=== PATIENT | female | born 1960 | race Caucasian/White ===

== ENCOUNTER 2017-05-19 09:00 | Emergency (ER) | payer SELFPAY ==
[2017-05-19] MEDS ORDERED: OXYCODONE-ACETAMINOPHEN 5-325 MG TABLET PO ONE (09:37)
--- NOTE | 2017-05-19 09:42 | ER Document Report ---
HPI - HPI Patient complains to provider of: right foot injury Pain Level: 5 Context: 56 yo female c/o right foot pain. foot fell asleep while she was sitting on toilet. when she stood up, she rolled her foot. Associated Symptoms: None Exacerbated by: Movement, Walking Relieved by: Denies Similar symptoms previously: No Recently seen / treated by doctor: No - ROS Systems Reviewed and Negative: Yes All other systems reviewed and negative - REPRODUCTIVE Reproductive: DENIES: : - DERM Skin Color: Ecchymosis Past Medical History - General Information source: Patient - Social History Smoking Status: Current Every Day Smoker Frequency of alcohol use: None Lives with: Family Family History: Reviewed & Not Pertinent Patient has suicidal ideation: No Patient has homicidal ideation: No - Past Medical History Cardiac Medical History: Reports: Hx Hypercholesterolemia, Hx Hypertension Pulmonary Medical History: Reports: Hx Asthma Renal/ Medical History: Denies: Hx Peritoneal Dialysis GI Medical History: Reports: Hx Gastroesophageal Reflux Disease Musculoskeltal Medical History: Reports Hx Musculoskeletal Deformity, Reports Hx Musculoskeletal Trauma Psychiatric Medical History: Reports: Hx Depression Traumatic Medical History: Reports: Hx Fractures - right foot and elbow Past Surgical History: Reports: Hx Hysterectomy, Hx Orthopedic Surgery - neck, right foot, elbow, back, Hx Tonsillectomy - Immunizations Immunizations up to date: Yes Hx Diphtheria, Pertussis, Tetanus Vaccination: Yes - 2014 Hx Pneumococcal Vaccination: 12/31/15 Vertical Provider Document - CONSTITUTIONAL Agree With Documented VS: Yes Exam Limitations: No Limitations General Appearance: WD/WN, No Apparent Distress - INFECTION CONTROL TRAVEL OUTSIDE OF THE [place] IN LAST 30 DAYS: No - HEENT HEENT: Atraumatic, PERRLA - NECK Neck: Normal Inspection, Supple - RESPIRATORY Respiratory: Breath Sounds Normal, No Respiratory Distress O2 Sat by Pulse Oximetry: 97 - MUSCULOSKELETAL/EXTREMETIES Musculoskeletal/Extremeties: Tender - right dorsilateral foot over proximal 4th and 5th metatarsals. mild soft tissue swelling. distal SMC intact Course - Re-evaluation Re-evalutation: 05/19/17 10:03 + fracture base of 5th metatarsal. results reviewed with patient. splint applied. pt to f/u with ortho for further evaluation and treatment. pt agreeable with plan and stable for discharge - Vital Signs Vital signs: Temp Pulse Resp BP Pulse Ox 97.9 F 66 18 115/75 97 05/19/17 09:07 05/19/17 09:07 05/19/17 09:07 05/19/17 09:07 05/19/17 09:07 Procedures - Immobilization right foot Pre-Proc Neuro Vasc Exam: Normal Immobilizer type: Posterior ankle Performed by: PCT Post-Proc Neuro Vasc Exam: Normal Alignment checked and good: Yes Discharge - Discharge Clinical Impression: Fracture of 5th metatarsal Qualifiers: Encounter type: initial encounter Fracture type: closed Fracture alignment: nondisplaced Condition: Stable Disposition: HOME, SELF-CARE Instructions: Foot Fracture ([facility]), Splint Pending Casting ([facility]), Use of Crutches ([facility]), Oral Narcotic Medication ([facility]) Additional Instructions: wear splint until seen by orthopedist use crutches, no weight bearing pain med as needed ice and elevate extremity follow up with orthopedist for further evaluation and treatment Prescriptions: Oxycodone HCl/Acetaminophen [Percocet 5-325 mg Tablet] 1 - 2 tab PO ASDIR PRN # 15 tablet PRN Reason: Referrals: DARLYN HERNANDEZ MD [ACTIVE STAFF] - Follow up as needed
--- NOTE | 2017-05-19 09:49 | RADIOLOGY REPORT (SQ) ---
EXAM DESCRIPTION: FOOT RIGHT COMPLETE COMPLETED DATE/TIME: 05/19/2017 9:35 am REASON FOR STUDY: foot injury COMPARISON: None. NUMBER OF VIEWS: Three views. TECHNIQUE: AP, lateral and oblique radiographic images acquired of the right foot. LIMITATIONS: None. FINDINGS: MINERALIZATION: Normal. BONES: Transverse lucency is identified at the level of the proximal end of the 5th metatarsal consis tent with a fracture. No other evidence for fracture is seen. No worrisome bone lesions. Patient i s status post osteotomy at the level of the distal 1st metatarsal. Orthopedic pin is identified in p osition. JOINTS: No effusions. SOFT TISSUES: No soft tissue swelling. No foreign body. OTHER: No other significant finding. IMPRESSION: Transverse lucency at the level of the proximal end of the 5th metatarsal consistent wit h a fracture. Other findings as noted above TECHNICAL DOCUMENTATION: JOB ID: [id number] [employer]- All Rights Reserved
[2017-05-19 10:17] VITALS: BP 114/72
== END 2017-05-19 10:30 | disposition home or self-care (01) ==
LOC: ER 09:00
PROC: 2W3QX1Z Immobilization of Right Lower Leg using Splint (ICD-10-PCS; principal; 2017-05-19)
DX: S92.354A Nondisplaced fracture of fifth metatarsal bone, right foot, initial encounter for closed fracture (principal); M79.671 Pain in right foot; X50.1XXA Overexertion from prolonged static or awkward postures, initial encounter; F17.200 Nicotine dependence, unspecified, uncomplicated
CPT/HCPCS: 99283

== ENCOUNTER 2018-04-30 22:36 | Emergency (ER) | payer SELFPAY ==
--- NOTE | 2018-05-01 00:32 | ER Document Report ---
ED Medical Screen (RME) - General Chief Complaint: Hip Pain Stated Complaint: HIP PAIN Time Seen by Provider: 05/01/18 00:30 Mode of Arrival: Wheelchair Information source: Patient Notes: Patient is a 57-year-old female who presents with left hip left hip pain and swelling. Patient reports this is been ongoing for approximately 2 weeks. Patient denies any trauma to the area. Patient denies any other symptoms to include fever. Patient does report that she has a history of arthritis. I have greeted and performed a rapid initial assessment of this patient. A comprehensive ED assessment and evaluation of the patient, analysis of test results and completion of the medical decision making process will be conducted by additional ED providers. Dictation of this chart was performed using voice recognition software; therefore, there may be some unintended grammatical errors. Exam: TTP to left hip, no erythema, +swelling noted. TRAVEL OUTSIDE OF THE [place] IN LAST 30 DAYS: No - Related Data Allergies/Adverse Reactions: No Known Allergies Allergy (Verified 05/19/17 09:04) Past Medical History - Past Medical History Cardiac Medical History: Reports: Hx Hypercholesterolemia, Hx Hypertension Pulmonary Medical History: Reports: Hx Asthma Renal/ Medical History: Denies: Hx Peritoneal Dialysis GI Medical History: Reports: Hx Gastroesophageal Reflux Disease Musculoskeltal Medical History: Reports Hx Musculoskeletal Deformity, Reports Hx Musculoskeletal Trauma Psychiatric Medical History: Reports: Hx Depression Traumatic Medical History: Reports: Hx Fractures - right foot and elbow Past Surgical History: Reports: Hx Hysterectomy, Hx Orthopedic Surgery - neck, right foot, elbow, back, Hx Tonsillectomy - Immunizations Immunizations up to date: Yes Hx Diphtheria, Pertussis, Tetanus Vaccination: Yes - 2014 Physical Exam - Vital signs Vitals: Temp Pulse Resp BP Pulse Ox 98.5 F 69 20 173/108 H 98 04/30/18 22:51 04/30/18 22:51 04/30/18 22:51 04/30/18 22:51 04/30/18 22:51 Course - Vital Signs Vital signs: Temp Pulse Resp BP Pulse Ox 98.5 F 69 20 173/108 H 98 04/30/18 22:51 04/30/18 22:51 04/30/18 22:51 04/30/18 22:51 04/30/18 22:51 Doctor's Discharge - Discharge Referrals: JOANNA BRYANT MD [Primary Care Provider] - Follow up as needed
--- NOTE | 2018-05-01 01:38 | RADIOLOGY REPORT (SQ) ---
EXAM DESCRIPTION: XR HIP 2 OR MORE VIEWS COMPLETED DATE/TME: 05/01/2018 00:30 CLINICAL HISTORY: 57 years, Female, L hip pain/swelling COMPARISON: 08/17/2011 FINDINGS: Single view of the pelvis and lateral view of the left hip. No acute fracture or dislocation. No abnormalities of the pelvic bones. Mild bilateral hip joint space narrowing and marginal osteophytosis. No abnormalities of the pelvic soft tissues. IMPRESSION: 1. No acute fracture of the left hip identified. 2. Mild osteoarthritic change of the hips. 2010 [employer]- All Rights Reserved
--- NOTE | 2018-05-01 02:58 | ER Document Report ---
ED Hip Pain/Injury - General Chief Complaint: Hip Pain Stated Complaint: HIP PAIN Time Seen by Provider: 05/01/18 00:30 Mode of Arrival: Wheelchair Notes: The patient is a 57-year-old female, past medical history hypertension, arthritis, Lupus, presents with 3 weeks of left hip pain. She took a Percocet 2 hours ago with only mild relief of her pain. She denies fevers, trauma, difficulty walking or urinary symptoms. TRAVEL OUTSIDE OF THE [place] IN LAST 30 DAYS: No - Related Data Allergies/Adverse Reactions: No Known Allergies Allergy (Verified 05/19/17 09:04) Past Medical History - General Information source: Patient - Social History Smoking Status: Unknown if Ever Smoked Family History: Reviewed & Not Pertinent - Past Medical History Cardiac Medical History: Reports: Hx Hypercholesterolemia, Hx Hypertension Pulmonary Medical History: Reports: Hx Asthma Renal/ Medical History: Denies: Hx Peritoneal Dialysis GI Medical History: Reports: Hx Gastroesophageal Reflux Disease Musculoskeltal Medical History: Reports Hx Musculoskeletal Deformity, Reports Hx Musculoskeletal Trauma Psychiatric Medical History: Reports: Hx Depression Traumatic Medical History: Reports: Hx Fractures - right foot and elbow Past Surgical History: Reports: Hx Hysterectomy, Hx Orthopedic Surgery - neck, right foot, elbow, back, Hx Tonsillectomy - Immunizations Immunizations up to date: Yes Hx Diphtheria, Pertussis, Tetanus Vaccination: Yes - 2014 Hx Pneumococcal Vaccination: 12/31/15 Review of Systems - Review of Systems Notes: REVIEW OF SYSTEMS: CONSTITUTIONAL: -fevers, -chills EENT: -eye pain, -difficulty swallowing, -nasal congestion CARDIOVASCULAR: -chest pain, -syncope. RESPIRATORY: -cough, -SOB GASTROINTESTINAL: -abdominal pain, -nausea, -vomiting, -diarrhea GENITOURINARY: -dysuria, -hematuria MUSCULOSKELETAL: +left hip pain, -back pain, -neck pain SKIN: -rash or skin lesions. HEMATOLOGIC: -easy bruising or bleeding. LYMPHATIC: -swollen, enlarged glands. NEUROLOGICAL: -altered mental status or loss of consciousness, -headache, - neurologic symptoms PSYCHIATRIC: -anxiety, -depression. ALL OTHER SYSTEMS REVIEWED AND NEGATIVE. Physical Exam - Vital signs Vitals: Temp Pulse Resp BP Pulse Ox 98.5 F 69 20 173/108 H 98 04/30/18 22:51 04/30/18 22:51 04/30/18 22:51 04/30/18 22:51 04/30/18 22:51 - Notes Notes: PHYSICAL EXAMINATION: GENERAL: Ambulating around the ED without difficulty. Tearful on my evaluation. HEAD: Atraumatic, normocephalic. EYES: Pupils equal round and reactive to light, extraocular movements intact, sclera anicteric, conjunctiva are normal. ENT: nares patent, oropharynx clear without exudates. Moist mucous membranes. NECK: Normal range of motion, supple without lymphadenopathy LUNGS: Breath sounds clear to auscultation bilaterally and equal. No wheezes rales or rhonchi. HEART: Regular rate and rhythm without murmurs ABDOMEN: Soft, nontender, normoactive bowel sounds. No guarding, no rebound. No masses appreciated. EXTREMITIES: Normal range of motion, no pitting or edema. No cyanosis. Tenderness over left posterior hip. Mild swelling of left posterior hip. NEUROLOGICAL: Cranial nerves grossly intact. Normal speech, normal gait. Normal sensory and motor exams. PSYCH: Normal mood, normal affect. SKIN: Warm, Dry, normal turgor, no rashes or lesions noted. Course - Re-evaluation Re-evalutation: Patient ambulating around the ER without any difficulties. Her x-ray does show mild arthritis of her left hip. Symptoms ongoing for 3 weeks and she is not taking any anti-inflammatories. Instructed her to follow-up with orthopedics for further evaluation and treatment. No signs of septic joint or fractures at this time. - Vital Signs Vital signs: Temp Pulse Resp BP Pulse Ox 98.5 F 69 20 173/108 H 98 04/30/18 22:51 04/30/18 22:51 04/30/18 22:51 04/30/18 22:51 04/30/18 22:51 - Diagnostic Test Radiology reviewed: Image reviewed, Reports reviewed Radiology results interpreted by me: Left hip x-ray: 1. No acute fracture of the left hip identified. 2. Mild osteoarthritic change of the hips. Discharge - Discharge Clinical Impression: Arthritis of left hip, Left hip pain Condition: Stable Disposition: HOME, SELF-CARE Additional Instructions: Arthritis Your symptoms are due to arthritis. Arthritis is an inflammation of the joints. There are many types -- osteoarthritis (due to "wear and tear"), auto- immmune arthritis (such as rheumatoid, lupus, Lara's, and others), and crystal -induced arthritis (such as gout and pseudogout). The physician's examination, combined with laboratory tests, will determine the cause of your arthritis. All types of arthritis are treated with antiinflammatory medications. Other medication may be required for special types of arthritis, or if your problem does not respond to the antiinflammatory medicine. Local warmth may be helpful. Move the involved joints through the full range of motion daily. Mild exercise is usually still possible for most persons with arthritis (ask your physician). Swimming provides good exercise without damaging the joints. Contact the physician if you are worsening in any way. Prescriptions: Lidocaine [Lidoderm 5% (700 mg) Transdermal Patch] 1 patch TP DAILY #10 adh..patch Naproxen [Naprosyn 250 mg Tablet] 500 mg PO Q12H PRN #30 tablet PRN Reason: Forms: Elevated Blood Pressure Referrals: JOANNA BRYANT MD [Primary Care Provider] - Follow up as needed SHAKEEL MORTON MD [ACTIVE STAFF] - Follow up as needed
[2018-05-01] MEDS ORDERED: NAPROXEN 250 MG TABLET PO ONE ×2 (03:03→03:13)
[2018-05-01] MEDS ORDERED: LIDOCAINE 5% (700 MG) TRANSDERMAL ADH..PATCH TP ONE (03:03)
[2018-05-01] MEDS ORDERED: IBUPROFEN 600 MG TABLET PO ONE (03:15)
[2018-05-01 03:49] VITALS: BP 188/110
== END 2018-05-01 03:50 | disposition home or self-care (01) ==
LOC: ER 22:36
DX: M16.12 Unilateral primary osteoarthritis, left hip (principal); M25.552 Pain in left hip; I10 Essential (primary) hypertension; J45.909 Unspecified asthma, uncomplicated
CPT/HCPCS: 99283

== ENCOUNTER 2018-08-11 10:14 | Inpatient (IN) | payer SELFPAY ==
[2018-08-11] MEDS ORDERED: IPRATROPIUM/ALBUTEROL 0.5-2.5 MG/3 ML AMPUL NEB ONE (10:50)
[2018-08-11] MEDS ORDERED: METHYLPREDNISOLONE INJ 125 MG/2 ML SDV IM ONE (10:51)
[2018-08-11] MEDS ORDERED: BENZONATATE 100 MG CAPSULE PO ONE ×2 (10:51→10:54)
--- NOTE | 2018-08-11 10:54 | ER Document Report ---
HPI - HPI Pain Level: 4 Notes: Patient is a 57-year-old female with a history of pneumonia who presents to the ED complaining of a harsh dry primarily nonproductive cough and wheezing over the last 5-6 days. Patient has been using [id number] meds with minimal relief. She has been able to eat and drink without any difficulties. She is urinating normally and having normal bowel movements. Patient states that she has soreness to her lungs when she is coughing, but no other chest pain. Denies drug allergies. Denies any smoking history. Denies any headache, fever , neck pain, URI, sore throat, chest pain, palpitations, syncope, abdominal pain , nausea/vomiting/diarrhea, urinary retention, dysuria, hematuria, or rash. - ROS Systems Reviewed and Negative: Yes All other systems reviewed and negative - REPRODUCTIVE Reproductive: DENIES: : Past Medical History - Social History Smoking Status: Never Smoker Family History: Reviewed & Not Pertinent - Past Medical History Cardiac Medical History: Reports: Hx Hypercholesterolemia, Hx Hypertension Pulmonary Medical History: Reports: Hx Asthma Renal/ Medical History: Denies: Hx Peritoneal Dialysis GI Medical History: Reports: Hx Gastroesophageal Reflux Disease Musculoskeletal Medical History: Reports Hx Musculoskeletal Deformity, Reports Hx Musculoskeletal Trauma Psychiatric Medical History: Reports: Hx Depression Traumatic Medical History: Reports: Hx Fractures - right foot and elbow Past Surgical History: Reports: Hx Hysterectomy, Hx Orthopedic Surgery - neck, right foot, elbow, back, Hx Tonsillectomy - Immunizations Immunizations up to date: Yes Hx Diphtheria, Pertussis, Tetanus Vaccination: Yes - 2014 Hx Pneumococcal Vaccination: 12/31/15 Vertical Provider Document - CONSTITUTIONAL Agree With Documented VS: Yes Notes: PHYSICAL EXAMINATION: GENERAL: Well-appearing, well-nourished and in no acute distress. A&Ox4. Answers questions appropriately. Moves comfortably w/o notable distress HEAD: Atraumatic, normocephalic. EYES: Pupils equal round and reactive to light, extraocular movements intact, sclera anicteric, conjunctiva are normal. ENT: EAC clear b/l. TM's intact b/l without erythema, fluid, or perforation. Nares patent and without discharge. oropharynx no erythema without exudates. No tonsilar hypertrophy without erythema or exudate. No palatine shift. Uvula midline. No tongue protrusion. No drooling, hoarseness, or airway compromise. Moist mucous membranes. No sinus tenderness. NECK: Normal range of motion, supple without lymphadenopathy. No rigidity/ meningismus. LUNGS: Rhonchi b/l with wheezing. No retractions. I did hear a very harsh dry sounding cough pt was describing. HEART: Regular rate and rhythm without murmurs, rubs, gallops. ABDOMEN: Soft, nontender, nondistended abdomen. No guarding, no rebound. No masses appreciated. Normal bowel sounds present. No CVA tenderness bilaterally. No hepatosplenomegaly. NEUROLOGICAL: Normal speech, normal gait. Normal sensory, motor exams PSYCH: Normal mood, normal affect. SKIN: Warm, Dry, normal turgor, no rashes or lesions noted. - INFECTION CONTROL TRAVEL OUTSIDE OF THE [place] IN LAST 30 DAYS: No Course - Re-evaluation Re-evalutation: 08/11/18 12:05 Patient is an afebrile, well-hydrated, 57-year-old female who presents to the ED with an acute URI, suspect viral. Vitals are acceptable without any significant tachycardia, tachypnea, or hypoxia. PE is otherwise unremarkable. Chest x-ray was unremarkable for any acute pathology. Solu-Medrol and DuoNeb given today. Patient does have a very harsh dry cough noted during my exam. Patient has a history of pneumonia. I will be sending her home with a prednisone taper as well as a pocket prescription for Zithromax which she may begin with ongoing/worsening symptoms over the next couple days. No further labs or imaging warranted at this time. Low suspicion for any ACS, PE, pneumothorax, pericarditis, dissection, respiratory compromise, severe dehydration, sepsis, meningitis, or other systemic emergent condition at this time. Patient is aware that her condition can change from initial presentation and she needs to monitor symptoms closely and seek medical attention for any acute changes. Recommend conservative measures for symptoms. Recheck with your PCM in 2-3 days. Return to the ED with any worsening/concerning symptoms otherwise as reviewed in discharge. Patient is in agreement. - Vital Signs Vital signs: Temp Pulse Resp BP Pulse Ox 99.8 F 80 22 H 119/64 96 08/11/18 10:21 08/11/18 10:21 08/11/18 10:21 08/11/18 10:21 08/11/18 10:21 Discharge - Discharge Clinical Impression: Acute URI, Wheezing Condition: Stable Disposition: HOME, SELF-CARE Instructions: Upper Respiratory Illness ([facility]) Additional Instructions: Maintain adequate fluid intake Take meds as directed tylenol/ibuprofen as needed over the counter cold medication as needed for symptoms Humidified air may help Wash your hands regularly Wear a mask when coughing F/u: with your PCM in 2-3 days for a recheck Return to the ED with any fever, worsening pain, chest pain, palpitations, syncope, worsening SAMPSON, neck pain/stiffness, shortness of breath, wheezing, drooling, trouble swallowing/breathing, abdominal pain, n/v/d, rash, or worsening/concerning symptoms otherwise. Prescriptions: Azithromycin [Zithromax 250 mg Tablet] 250 mg PO ASDIR PRN #6 tablet PRN Reason: Prednisone 20 mg PO ASDIR #18 tablet Referrals: JOANNA BRYANT MD [NO LOCAL MD] - 08/13/18
--- NOTE | 2018-08-11 12:00 | RADIOLOGY REPORT (SQ) ---
EXAM DESCRIPTION: CHEST 2 VIEWS COMPLETED DATE/TIME: 08/11/2018 11:27 am REASON FOR STUDY: cough COMPARISON: 09/27/2016 EXAM PARAMETERS: NUMBER OF VIEWS: two views TECHNIQUE: Digital Frontal and Lateral radiographic views of the chest acquired. RADIATION DOSE: NA LIMITATIONS: Overlying breast tissue. FINDINGS: LUNGS AND PLEURA: No opacities, masses or pneumothorax. No pleural effusion. MEDIASTINUM AND HILAR STRUCTURES: No masses or contour abnormalities. HEART AND VASCULAR STRUCTURES: Heart normal size. No evidence for failure. BONES: No acute findings. HARDWARE: None in the chest. OTHER: No other significant finding. IMPRESSION: NO ACUTE RADIOGRAPHIC FINDING IN THE CHEST. TECHNICAL DOCUMENTATION: JOB ID: [id number] [employer]- All Rights Reserved Reading location - IP/workstation name: [email or web address]
[2018-08-11] MEDS ORDERED: ALBUTEROL SULFATE 0.083% NEB 2.5 MG/3 ML AMPUL NEB ONE ×3 (12:11→14:29)
[2018-08-11] MEDS ORDERED: NORMAL SALINE 1000 ML 1,000 ML IV ONE (12:49)
[2018-08-11] MEDS: MAGNESIUM SULFATE/D5W 1 GM/100 ML RTUPB IV SCH ×2 (13:52→14:06)
--- NOTE | 2018-08-11 14:15 | RADIOLOGY REPORT (SQ) ---
EXAM DESCRIPTION: CHEST SINGLE VIEW COMPLETED DATE/TIME: 08/11/2018 2:07 pm REASON FOR STUDY: repeat, worsening sob/cough COMPARISON: 08/11/2018 EXAM PARAMETERS: NUMBER OF VIEWS: One view. TECHNIQUE: Single frontal radiographic view of the chest acquired. RADIATION DOSE: NA LIMITATIONS: None. FINDINGS: LUNGS AND PLEURA: There is linear atelectasis in the left base. Lung argueta are otherwise clear. MEDIASTINUM AND HILAR STRUCTURES: No masses. Contour normal. HEART AND VASCULAR STRUCTURES: Heart normal in size. Normal vasculature. BONES: No acute findings. HARDWARE: None in the chest. OTHER: No other significant finding. IMPRESSION: Linear atelectasis in the left base. No other significant findings. TECHNICAL DOCUMENTATION: JOB ID: [id number] [employer]- All Rights Reserved Reading location - IP/workstation name: [email or web address]
[2018-08-11 14:26] LABS: APPEARANCE,URINE CLOUDY; BILIRUBIN,URINE NEGATIVE (NEGATIVE); COLOR,URINE YELLOW; GLUCOSE, URINE NEGATIVE (NEGATIVE); KETONES,URINE NEGATIVE (NEGATIVE); LEUKOCYTE ESTERASE,URINE NEGATIVE (NEGATIVE); NITRITE,URINE NEGATIVE (NEGATIVE); PROTEIN,URINE NEGATIVE (NEGATIVE); URINE SPECIFIC GRAVITY 1.015; UROBILINOGEN,URINE NEGATIVE mg/dL (<2.0)
--- NOTE | 2018-08-11 14:32 | ER Document Report ---
Doctor's Note Notes: 08/11/18 15:30 I assumed care of this patient after an acute decompensation. She presented for wheezing and shortness of breath, had a response to albuterol as well as steroids. Prior to being discharged she became more short of breath. I reassessed the patient, she was noted to have wheezes in all lung argueta, her work of breathing was elevated, she was initiated on BiPAP. IV magnesium was ordered in addition of the steroids and albuterol. She was given a liter bolus of fluid. Her blood pressure did trend downward, she was given a second liter of fluid. She had a d-dimer ordered previously which was elevated. As such we will pursue CTA of the chest. We will defer antibiotics at this time given that the patient has a normal lactate at this time as well as being afebrile. Reassess the patient, her work of breathing is improved and her wheezes improved. We will repeat her blood gas. Spoke to Dr. Gastelum, he agrees for admission of this patient at this time the [facility] level of care. Decrease BiPAP settings to 10/5 from 12/6. Patient's blood pressure improved thereafter. 08/11/18 15:46 Patient's EKG reviewed, no appreciable change from previous. Discharge - Discharge Clinical Impression: Hypoxia, Wheezing, COPD exacerbation Condition: Serious Disposition: ADMITTED INPATIENT Admitting Provider: Hospitalist Unit Admitted: ICU Critical Care Note - Critical Care Note Total time excluding time spent on procedures (mins): 45
[2018-08-11 14:36] LABS: VENOUS BLOOD BASE EXCESS 1.8 mmol/L; VENOUS BLOOD HCO3 28.8 mmol/L (20-32); VENOUS BLOOD PCO2 56.4 mmHg (35-63); VENOUS BLOOD PH 7.33 (7.30-7.42)
[2018-08-11 14:42] LABS: URINE AMPHETAMINES SCREEN NEGATIVE; URINE BARBITURATES SCREEN NEGATIVE; URINE BENZODIAZEPINES SCREEN UNCONFIRMED POSITIVE; URINE COCAINE SCREEN NEGATIVE; URINE MARIJUANA (THC) SCREEN NEGATIVE; URINE METHADONE SCREEN NEGATIVE; URINE PHENCYCLIDINE SCREEN NEGATIVE
[2018-08-11 14:43] LABS: ABSOLUTE LYMPHOCYTES (AUTO) 0.9 10^3/uL (0.5-4.7); ABSOLUTE MONOCYTES (AUTO) 0.2 10^3/uL (0.1-1.4); ABSOLUTE NEUT (AUTO) 9.1 10^3/uL (1.7-8.2); BASOPHILS % (AUTO) 0.3 % (0-2); EOSINOPHILS % (AUTO) 0.1 % (0-6); HEMATOCRIT 34.4 % (36.0-47.0); HEMOGLOBIN 11.6 g/dL (12.0-15.5); LYMPHOCYTES % (AUTO) 8.9 % (13-45); MEAN CORPUSCULAR HEMOGLOBIN 30.6 pg (27.0-33.4); MEAN CORPUSCULAR HGB CONC 33.8 g/dL (32.0-36.0); MEAN CORPUSCULAR VOLUME 91 fl (80-97); MONOCYTES % (AUTO) 2.1 % (3-13); PLATELET COUNT 236 10^3/uL (150-450); RED CELL DISTRIBUTION WIDTH 14.1 % (11.5-14.0); SEGMENTED NEUTROPHILS % (AUTO) 88.6 % (42-78); TOTAL CELLS COUNTED % (AUTO) 100 %; WHITE BLOOD COUNT 10.3 10^3/uL (4.0-10.5)
[2018-08-11 14:50] LABS: ALANINE AMINOTRANSFERASE 31 U/L (9-52); ALBUMIN 3.8 g/dL (3.5-5.0); ALKALINE PHOSPHATASE 102 U/L (38-126); ANION GAP 10 (5-19); ASPARTATE AMINO TRANSFERASE 19 U/L (14-36); BILIRUBIN,DIRECT 0.3 mg/dL (0.0-0.4); BILIRUBIN,TOTAL 0.6 mg/dL (0.2-1.3); BLOOD UREA NITROGEN 19 mg/dL (7-20); CALCIUM 8.4 mg/dL (8.4-10.2); CARBON DIOXIDE 27 mmol/L (22-30); CHLORIDE 97 mmol/L (98-107); GLUCOSE 162 mg/dL (75-110); POTASSIUM 3.7 mmol/L (3.6-5.0); SODIUM 133.5 mmol/L (137-145); TOTAL PROTEIN 7.1 g/dL (6.3-8.2)
[2018-08-11] MEDS ORDERED: AZITHROMYCIN 500 MG in DEXTROSE 5%-WATER 250 ML IV SCH (15:00)
[2018-08-11] MEDS ORDERED: CEFTRIAXONE RTU 1 GM/D5W 50 ML IV ONE (15:00)
[2018-08-11 15:02] LABS: NT PRO BNP 334 pg/mL (5-900); TROPONIN I < 0.012 ng/mL
[2018-08-11] MEDS ORDERED: METHYLPREDNISOLONE INJ 125 MG/2 ML SDV IV SCH (15:30)
[2018-08-11] MEDS: IPRATROPIUM/ALBUTEROL 0.5-2.5 MG/3 ML AMPUL NEB SCH ×3 (15:44→20:46)
[2018-08-11 16:01] LABS: VENOUS BLOOD BASE EXCESS 0.5 mmol/L; VENOUS BLOOD HCO3 28.4 mmol/L (20-32); VENOUS BLOOD PCO2 61.7 mmHg (35-63); VENOUS BLOOD PH 7.28 (7.30-7.42)
[2018-08-11] MEDS ORDERED: NOREPINEPHRINE BITARTRATE INJ/PF 4 MG/4 ML SDV IV ONE (16:22)
[2018-08-11] MEDS ORDERED: KETAMINE HCL INJ 500 MG/10 ML VIAL ONE (16:23)
[2018-08-11] MEDS ORDERED: KETAMINE HCL INJ 500 MG/10 ML VIAL IV ONE (16:49)
[2018-08-11] MEDS ORDERED: ROCURONIUM BROMIDE INJ 50 MG/5 ML VIAL IV ONE ×2 (16:49→22:00)
[2018-08-11] MEDS ORDERED: DEXTROSE 5%-WATER 250 ML with NOREPINEPHRINE BITARTRATE 4 MG IV PRN ×2 (16:50)
[2018-08-11] MEDS: AZITHROMYCIN 500 MG in DEXTROSE 5%-WATER 250 ML IV SCH (17:18)
--- NOTE | 2018-08-11 17:18 | RADIOLOGY REPORT (SQ) ---
EXAM DESCRIPTION: CHEST SINGLE VIEW COMPLETED DATE/TIME: 08/11/2018 5:08 pm REASON FOR STUDY: Post intubation/OG COMPARISON: 08/11/2018 EXAM PARAMETERS: NUMBER OF VIEWS: One view. TECHNIQUE: Single frontal radiographic view of the chest acquired. RADIATION DOSE: NA LIMITATIONS: None. FINDINGS: LUNGS AND PLEURA: There is opacification the left base. The left hemidiaphragm is indisti nct. Pulmonary vascular prominence is seen. MEDIASTINUM AND HILAR STRUCTURES: No masses. Contour normal. HEART AND VASCULAR STRUCTURES: Heart size is upper limit of normal. BONES: No acute findings. HARDWARE: Endotracheal tube has its tip 4 cm above the rubén. And OG tube extends to the stomach. OTHER: No other significant finding. IMPRESSION: Tube placement as described. Cannot exclude left lower lobe pneumonia. TECHNICAL DOCUMENTATION: JOB ID: [id number] [employer] All Rights Reserved Reading location - IP/workstation name: [email or web address]
[2018-08-11] MEDS ORDERED: ACETAMINOPHEN 325 MG TABLET NG PRN (17:31)
[2018-08-11] MEDS ORDERED: MIDAZOLAM 2 MG/2 ML INJ IV PRN (17:45)
--- NOTE | 2018-08-11 17:57 | PDOC H&P ---
History of Present Illness Admission Date/PCP: 08/11/18 16:06 YADIEL BRIAN Patient complains of: Difficulty breathing and shortness of breath History of Present Illness: EMILY PETTIT is a 57 year old female Patient presented to the emergency room with complaints of difficulty breathing and shortness of breath. It appears she was treated with bronchodilators as well as steroids. She was found to be bronchospastic and was tachypneic. She had initially improved but it appears she is subsequently decompensated leading to a mechanical ventilation and intubation after a trial of BiPAP which failed. She was also found to be hypotensive and was started on Levophed by the time I saw her in the ED pressure had improved and will try to taper off the Levophed. She was treated with magnesium IV also. Please note this history is obtained solely from the chart as patient is intubated unable to provide any history. Chest x-ray shows linear atelectasis in the left base and EKG shows sinus rhythm with no acute ST changes Past Medical History Cardiac Medical History: Reports: Hyperlipidema, Hypertension Pulmonary Medical History: Reports: Asthma GI Medical History: Reports: Gastroesophageal Reflux Disease Psychiatric Medical History: Reports: Depression Past Surgical History Past Surgical History: Reports: Hysterectomy, Orthopedic Surgery - neck, right foot, elbow, back, Tonsillectomy Social History Smoking Status: Never Smoker - Advance Directive Resuscitation Status: Full Code Family History Family History: Reviewed & Not Pertinent Parental Family History Reviewed: No - Unavailable Children Family History Reviewed: No Sibling(s) Family History Reviewed.: No Medication/Allergy Home Medications: Atenolol [Tenormin 100 mg Tablet] 100 mg PO DAILY 08/11/18 Cyclobenzaprine HCl [Flexeril 10 mg Tablet] 10 mg PO TIDP PRN 08/11/18 Gabapentin [Neurontin] 800 mg PO TID 08/11/18 Hydrochlorothiazide [Hydrodiuril 12.5 mg Capsule] 12.5 mg PO DAILY 08/11/18 Lisinopril [Prinivil 40 mg Tablet] 40 mg PO DAILY 08/11/18 Naproxen [Naprosyn 250 mg Tablet] 500 mg PO Q12 08/11/18 Oxycodone HCl/Acetaminophen [Percocet 10-325 mg Tablet] 1 tab PO 5XD 08/11/18 Allergies/Adverse Reactions: No Known Allergies Allergy (Verified 05/19/17 09:04) Review of Systems ROS unobtainable: Due to endotracheal tube Physical Exam Vital Signs: Temp Pulse Resp BP Pulse Ox 97.7 F 81 11 L 75/41 L 95 08/11/18 15:08 08/11/18 12:43 08/11/18 15:27 08/11/18 15:27 08/11/18 16:40 Intake & Output 08/10/18 08/11/18 08/12/18 06:59 06:59 06:59 Intake Total 7 Balance 7 General appearance: PRESENT: well-developed, well-nourished, other - Mechanical ventilation Head exam: PRESENT: atraumatic Eye exam: PRESENT: PERRLA Ear exam: PRESENT: normal external ear exam Neck exam: ABSENT: carotid bruit, JVD, lymphadenopathy, thyromegaly Respiratory exam: PRESENT: decreased breath sounds, rhonchi, other Cardiovascular exam: PRESENT: RRR. ABSENT: diastolic murmur, rubs, systolic murmur Pulses: PRESENT: normal dorsalis pedis pul GI/Abdominal exam: PRESENT: normal bowel sounds, soft. ABSENT: distended, guarding, mass, organolmegaly, rebound, tenderness Rectal exam: PRESENT: deferred Musculoskeletal exam: PRESENT: normal inspection Neurological exam: PRESENT: other - sedated, unable to evaluate Psychiatric exam: PRESENT: other - sedated Results Laboratory Results: 08/11/18 14:20 08/11/18 14:20 MCV 91 fl (80-97) 08/11/18 14:20 MCH 30.6 pg (27.0-33.4) 08/11/18 14:20 MCHC 33.8 g/dL (32.0-36.0) 08/11/18 14:20 RDW 14.1 % (11.5-14.0) H 08/11/18 14:20 Seg Neutrophils % 88.6 % (42-78) H 08/11/18 14:20 Lymphocytes % 8.9 % (13-45) L 08/11/18 14:20 Monocytes % 2.1 % (3-13) L 08/11/18 14:20 Eosinophils % 0.1 % (0-6) 08/11/18 14:20 Basophils % 0.3 % (0-2) 08/11/18 14:20 Absolute Neutrophils 9.1 10^3/uL (1.7-8.2) H 08/11/18 14:20 Absolute Lymphocytes 0.9 10^3/uL (0.5-4.7) 08/11/18 14:20 Absolute Monocytes 0.2 10^3/uL (0.1-1.4) 08/11/18 14:20 Absolute Eosinophils 0.0 10^3/uL (0.0-0.6) 08/11/18 14:20 Absolute Basophils 0.0 10^3/uL (0.0-0.2) 08/11/18 14:20 VBG pH 7.28 (7.30-7.42) L 08/11/18 15:55 VBG pCO2 61.7 mmHg (35-63) 08/11/18 15:55 VBG HCO3 28.4 mmol/L (20-32) 08/11/18 15:55 VBG Base Excess 0.5 mmol/L 08/11/18 15:55 Chloride 97 mmol/L (98-107) L 08/11/18 14:20 Carbon Dioxide 27 mmol/L (22-30) 08/11/18 14:20 Anion Gap 10 (5-19) 08/11/18 14:20 Est GFR ( Amer) 42 (>60) L 08/11/18 14:20 Est GFR (Non-Af Amer) 35 (>60) L 08/11/18 14:20 Glucose 162 mg/dL (75-110) H 08/11/18 14:20 Lactic Acid 0.9 mmol/L (0.7-2.1) 08/11/18 13:25 Calcium 8.4 mg/dL (8.4-10.2) 08/11/18 14:20 Total Bilirubin 0.6 mg/dL (0.2-1.3) 08/11/18 14:20 AST 19 U/L (14-36) 08/11/18 14:20 ALT 31 U/L (9-52) 08/11/18 14:20 Alkaline Phosphatase 102 U/L (38-126) 08/11/18 14:20 Total Protein 7.1 g/dL (6.3-8.2) 08/11/18 14:20 Albumin 3.8 g/dL (3.5-5.0) 08/11/18 14:20 Urine Color YELLOW 08/11/18 13:25 Urine Appearance CLOUDY 08/11/18 13:25 Urine pH 5.0 (5.0-9.0) 08/11/18 13:25 Ur Specific [place] 1.015 08/11/18 13:25 Urine Protein NEGATIVE mg/dL (NEGATIVE) 08/11/18 13:25 Urine Glucose (UA) NEGATIVE mg/dL (NEGATIVE) 08/11/18 13:25 Urine Ketones NEGATIVE mg/dL (NEGATIVE) 08/11/18 13:25 Urine Blood MODERATE (NEGATIVE) H 08/11/18 13:25 Urine Nitrite NEGATIVE (NEGATIVE) 08/11/18 13:25 Ur Leukocyte Esterase NEGATIVE (NEGATIVE) 08/11/18 13:25 Urine WBC (Auto) 4 /HPF 08/11/18 13:25 Urine RBC (Auto) 4 /HPF 08/11/18 13:25 08/11/18 14:20 Troponin I < 0.012 NT-Pro-B Natriuret Pep 334 Impressions: Chest X-Ray 08/11/18 13:59 IMPRESSION: Linear atelectasis in the left base. No other significant findings. Assessment & Plan - Diagnosis (1) Acute respiratory failure with hypoxemia Is this a current diagnosis for this admission?: Yes Plan: Presumably due to COPD exacerbation. Patient is scheduled for CTA to rule out underlying thromboembolism. She is to be admitted to the intensive care unit on mechanical ventilation. She will be placed on empiric antibiotics. Consultation with pulmonology will be sought. (2) COPD exacerbation Is this a current diagnosis for this admission?: Yes Plan: We will continue with bronchodilators as well as steroids and ventilation support - Time Time Spent: 50 to 70 Minutes Medications reviewed and adjusted accordingly: Yes Anticipated discharge: Home Within: Other - Inpatient Certification Based on my medical assessment, after consideration of the patient's comorbidities, presenting symptoms, or acuity I expect that the services needed warrant INPATIENT care.: Yes Post Hospital Care: Other - Mechanical ventilation - Plan Summary Plan Summary: H&P will be updated once further information available
[2018-08-11] MEDS ORDERED: CEFTRIAXONE 1 GM/D5W RTU 1 GM/50 ML RTUPB IV SCH (18:00)
[2018-08-11] MEDS: PROPOFOL 1,000 MG/100 ML INFUS..BTL IV PRN ×2 (18:04→20:51)
[2018-08-11 18:12] LABS: ARTERIAL BLOOD BASE EXCESS 2.1 mmol/L; ARTERIAL BLOOD HCO3 29.5 mmol/L (20-24); ARTERIAL BLOOD O2 SATURATION 92.1 % (94-98); ARTERIAL BLOOD PCO2 56.6 mmHg (35-45); ARTERIAL BLOOD PH 7.34 (7.35-7.45); ARTERIAL BLOOD PO2 67.9 mmHg (80-100); ARTERIAL BLOOD TOTAL CO2 31.2 mmol/L (21-25)
[2018-08-11 18:13] LABS: ARTERIAL BLOOD FIO2 40%
--- NOTE | 2018-08-11 19:21 | RADIOLOGY REPORT (SQ) ---
EXAM DESCRIPTION: CTA CHEST COMPLETED DATE/TIME: 08/11/2018 7:03 pm REASON FOR STUDY: positive dimer COMPARISON: None. TECHNIQUE: CT scan of the chest performed using helical scanning technique with dynamic intravenous contrast injection. Images reviewed with lung, soft tissue and bone windows. Reconstructed coronal and sagittal MPR images reviewed. Additional 3 dimensional post-processing performed to develop Maximal Intensity Projection images (AR P). All images stored on PACS. All CT scanners at this facility use dose modulation, iterative reconstruction, and/or weight based d osing when appropriate to reduce radiation dose to as low as reasonably achievable (ALARA). [facility]: Dose Right [facility]: CareDose [facility]: Dose Right [facility]: Teradose 4D [facility]: Cmune CONTRAST TYPE AND DOSE: contrast/concentration: Isovue 350.00 mg/ml; Total Contrast Delivered: 75.0 ml; Total Saline Delivered: 70.0 ml Contrast bolus optimized for the pulmonary arteries. Not diagnostic for the aorta. RENAL FUNCTION: GFR > 60. RADIATION DOSE: CT Rad equipment meets quality standard of care and radiation dose reduction techniq ues were employed. CTDIvol: 5.0 - 16.3 mGy. DLP: 664 mGy-cm. . LIMITATIONS: None. FINDINGS: LUNGS AND PLEURA: No pneumothorax. No pleural effusions. Bilateral lower lobe airspace d isease -atelectasis, left greater than right. . AORTA AND GREAT VESSELS: No aneurysm. Contrast bolus not optimized for the aorta. HEART: No pericardial effusion. No significant coronary artery calcifications. PULMONARY ARTERIES: No emboli visualized in the main pulmonary arteries or the segmental branches. HILAR AND MEDIASTINAL STRUCTURES: Scattered mildly enlarged nodes. HARDWARE: Endotracheal tube and esophageal catheter are present. UPPER ABDOMEN: No acute findings. Limited exam. THYROID AND OTHER SOFT TISSUES: No masses. No adenopathy. BONES: No acute finding. 3D MIPS: Confirm above findings. OTHER: No other significant finding. IMPRESSION: Bilateral lower lobe airspace disease -atelectasis, left greater than right. No emboli visualized in the main pulmonary arteries or the segmental branches. COMMENT: Quality ID # [id number]: Final reports with documentation of one or more dose reduction techniques (e.g., Automated exposure control, adjustment of the mA and/or kV according to patient size, use of iterative reconstruction technique) TECHNICAL DOCUMENTATION: JOB ID: [id number] [place]-72 2010 [employer]- All Rights Reserved Reading location - IP[facility]workstation name: [email or web address]
[2018-08-11] MEDS: METHYLPREDNISOLONE INJ 40 MG/1 ML SDV IV SCH ×2 (19:31→23:18)
[2018-08-11] MEDS: NORMAL SALINE 1000 ML 1,000 ML IV PRN (20:51)
[2018-08-11] MEDS ORDERED: FAMOTIDINE INJ/PF 20 MG/2 ML SDV IV SCH (22:00)
--- NOTE | 2018-08-11 22:27 | EKG REPORT ---
SEVERITY:- ABNORMAL ECG - SINUS RHYTHM CONSIDER LEFT VENTRICULAR HYPERTROPHY : Confirmed by: Lady Elizabeth MD 11-Aug-2018 22:26:37
--- NOTE | 2018-08-11 22:27 | EKG REPORT ---
SEVERITY:- ABNORMAL ECG - SINUS RHYTHM PROBABLE LEFT ATRIAL ABNORMALITY PROBABLE LEFT VENTRICULAR HYPERTROPHY : Confirmed by: Lady Elizabeth MD 11-Aug-2018 22:26:33
[2018-08-11] MEDS: FAMOTIDINE INJ/PF 20 MG/2 ML SDV IV SCH (23:18)
[2018-08-12] MEDS: PROPOFOL 1,000 MG/100 ML INFUS..BTL IV PRN ×7 (01:40→23:41)
[2018-08-12] MEDS: NORMAL SALINE 1000 ML 1,000 ML IV PRN ×3 (03:36→21:13)
[2018-08-12 04:30] LABS: HEMATOCRIT 34.9 % (36.0-47.0); HEMOGLOBIN 12.1 g/dL (12.0-15.5); MEAN CORPUSCULAR HEMOGLOBIN 31.2 pg (27.0-33.4); MEAN CORPUSCULAR HGB CONC 34.7 g/dL (32.0-36.0); MEAN CORPUSCULAR VOLUME 90 fl (80-97); PLATELET COUNT 208 10^3/uL (150-450); RED BLOOD COUNT 3.89 10^6/uL (3.72-5.28); RED CELL DISTRIBUTION WIDTH 13.7 % (11.5-14.0); WHITE BLOOD COUNT 18.6 10^3/uL (4.0-10.5)
[2018-08-12] MEDS: MIDAZOLAM HCL 50 MG/100 ML RTUINJ IV-INFUSE PRN ×4 (04:46→23:42)
[2018-08-12 04:53] LABS: ANION GAP 9 (5-19); BLOOD UREA NITROGEN 15 mg/dL (7-20); CARBON DIOXIDE 25 mmol/L (22-30); CHLORIDE 107 mmol/L (98-107); GLUCOSE 154 mg/dL (75-110); POTASSIUM 3.9 mmol/L (3.6-5.0); SODIUM 140.5 mmol/L (137-145)
[2018-08-12] MEDS: METHYLPREDNISOLONE INJ 40 MG/1 ML SDV IV SCH ×4 (05:32→23:43)
[2018-08-12 07:59] LABS: ARTERIAL BLOOD BASE EXCESS 4.5 mmol/L; ARTERIAL BLOOD H2CO3 1.29 mmol/L (1.05-1.35); ARTERIAL BLOOD O2 SATURATION 95.9 % (94-98); ARTERIAL BLOOD PCO2 42.9 mmHg (35-45); ARTERIAL BLOOD PH 7.45 (7.35-7.45); ARTERIAL BLOOD PO2 77.3 mmHg (80-100); ARTERIAL BLOOD TOTAL CO2 30.3 mmol/L (21-25)
[2018-08-12 08:04] LABS: ARTERIAL BLOOD FIO2 40%
[2018-08-12] MEDS ORDERED: ACETAMINOPHEN SOLN 325 MG/10.15 ML UDCUP NG PRN (08:55)
[2018-08-12] MEDS ORDERED: CEFTRIAXONE 1 GM/D5W RTU 1 GM/50 ML RTUPB IV SCH (10:00)
--- NOTE | 2018-08-12 10:05 | PDOC PROGRESS REPORT ---
Subjective Progress Note for:: 08/12/18 Subjective:: Patient intubated due to acute respiratory failure likely from COPD. She had an uneventful night. Her BP has recovered nicely. She is on pressure support and pretty comfortable Reason For Visit: ACUTE RESPIRATORY FAILURE, HYPOTENSION Physical Exam Vital Signs: Temp Pulse Resp BP Pulse Ox 97.7 F 71 15 117/67 96 08/12/18 08:00 08/12/18 08:00 08/12/18 08:00 08/12/18 08:00 08/12/18 08:00 Intake & Output 08/11/18 08/12/18 08/13/18 06:59 06:59 06:59 Intake Total 1081 83 Output Total 2975 400 Balance -1894 -317 Weight 81.1 kg General appearance: PRESENT: no acute distress, well-developed, well-nourished, other - mech ventilation Head exam: PRESENT: atraumatic, normocephalic Eye exam: PRESENT: conjunctiva pink, EOMI, PERRLA. ABSENT: scleral icterus Ear exam: PRESENT: normal external ear exam Mouth exam: PRESENT: moist Neck exam: ABSENT: carotid bruit, JVD, lymphadenopathy, thyromegaly Respiratory exam: PRESENT: clear to auscultation jennifer. ABSENT: rales, rhonchi, wheezes Cardiovascular exam: PRESENT: RRR. ABSENT: diastolic murmur, rubs, systolic murmur Pulses: PRESENT: normal dorsalis pedis pul Vascular exam: PRESENT: normal capillary refill GI/Abdominal exam: PRESENT: normal bowel sounds, soft. ABSENT: distended, guarding, mass, organolmegaly, rebound, tenderness Rectal exam: PRESENT: deferred Extremities exam: PRESENT: full ROM. ABSENT: calf tenderness, clubbing, pedal edema Neurological exam: PRESENT: alert. ABSENT: motor sensory deficit Psychiatric exam: PRESENT: appropriate affect, normal mood. ABSENT: homicidal ideation, suicidal ideation Skin exam: PRESENT: dry, intact, warm. ABSENT: cyanosis, rash Results Laboratory Results: 08/12/18 04:06 08/12/18 04:06 08/11/18 08/12/18 08/12/18 17:49 04:06 04:06 WBC 18.6 H RBC 3.89 Hgb 12.1 Hct 34.9 L MCV 90 MCH 31.2 MCHC 34.7 RDW 13.7 Plt Count 208 Carbonic Acid 1.70 H HCO3/H2CO3 Ratio 17:1 ABG pH 7.34 L ABG pCO2 56.6 H ABG pO2 67.9 L ABG HCO3 29.5 H ABG O2 Saturation 92.1 L ABG Base Excess 2.1 FiO2 40% Sodium 140.5 Potassium 3.9 Chloride 107 Carbon Dioxide 25 Anion Gap 9 BUN 15 Creatinine 0.86 Est GFR ( Amer) > 60 Est GFR (Non-Af Amer) > 60 Glucose 154 H Calcium 9.0 08/12/18 07:40 WBC RBC Hgb Hct MCV MCH MCHC RDW Plt Count Carbonic Acid 1.29 HCO3/H2CO3 Ratio 22:1 ABG pH 7.45 ABG pCO2 42.9 ABG pO2 77.3 L ABG HCO3 29.0 H ABG O2 Saturation 95.9 ABG Base Excess 4.5 FiO2 40% Sodium Potassium Chloride Carbon Dioxide Anion Gap BUN Creatinine Est GFR ( Amer) Est GFR (Non-Af Amer) Glucose Calcium 08/12/18 04:06 NT-Pro-B Natriuret Pep 711 Impressions: Chest X-Ray 08/11/18 13:59 IMPRESSION: Linear atelectasis in the left base. No other significant findings. Chest/Abdomen CTA 08/11/18 15:17 IMPRESSION: Bilateral lower lobe airspace disease -atelectasis, left greater than right. No emboli visualized in the main pulmonary arteries or the segmental branches. Assessment & Plan - Diagnosis (1) Acute respiratory failure with hypoxemia Is this a current diagnosis for this admission?: Yes Plan: Presumably due to COPD exacerbation. CTA shows no emboli Appreciate pulm consult. Will f/u with recommendations She also has bilateral airspace disease- possible PNA? [facility] antibiotics, follow up on cultures (2) COPD exacerbation Is this a current diagnosis for this admission?: Yes Plan: Continue Duoneb and steroids (3) On mechanically assisted ventilation Is this a current diagnosis for this admission?: Yes Plan: Currently on pressure support, wean off as tolerated (4) Hypertension Qualifiers: Hypertension type: essential hypertension Qualified Code(s): I10 - Essential (primary) hypertension Is this a current diagnosis for this admission?: Yes Plan: Start home antihypertensives and add prn as needed - Time Time Spent with patient: 25-34 minutes - Inpatient Certification Based on my medical assessment, after consideration of the patient's comorbidities, presenting symptoms, or acuity I expect that the services needed warrant INPATIENT care.: Yes Medical Necessity: Need Close Monitoring Due to Risk of Patient Decompensation, Risk of Complication if Not Cared For in Hospital
[2018-08-12] MEDS: ENOXAPARIN SODIUM INJ 40 MG/0.4 ML DISP.SYRIN SUBCUT SCH (10:37)
[2018-08-12] MEDS: AZITHROMYCIN 500 MG in DEXTROSE 5%-WATER 250 ML IV SCH (10:38)
[2018-08-12] MEDS ORDERED: MAGNESIUM SULFATE/D5W 1 GM/100 ML RTUPB IV ONE (11:45)
[2018-08-12] MEDS: CEFTRIAXONE SODIUM 1,000 MG in DEXTROSE 5%-WATER 50 ML IV SCH (12:46)
[2018-08-12] MEDS ORDERED: IPRATROPIUM/ALBUTEROL 0.5-2.5 MG/3 ML AMPUL NEB PRN (13:20)
[2018-08-12] MEDS: FENTANYL CITRATE INJ/PF 100 MCG/2 ML AMPUL IV PRN ×3 (15:44→21:35)
[2018-08-12] MEDS: IPRATROPIUM/ALBUTEROL 0.5-2.5 MG/3 ML AMPUL NEB SCH (16:28)
[2018-08-12] MEDS: FAMOTIDINE INJ/PF 20 MG/2 ML SDV IV SCH (21:15)
[2018-08-13] MEDS: FENTANYL CITRATE INJ/PF 100 MCG/2 ML AMPUL IV PRN ×4 (01:08→17:21)
[2018-08-13] MEDS: PROPOFOL 1,000 MG/100 ML INFUS..BTL IV PRN ×4 (02:48→18:24)
[2018-08-13 04:14] LABS: HEMATOCRIT 33.5 % (36.0-47.0); HEMOGLOBIN 11.5 g/dL (12.0-15.5); MEAN CORPUSCULAR HEMOGLOBIN 30.7 pg (27.0-33.4); MEAN CORPUSCULAR HGB CONC 34.2 g/dL (32.0-36.0); MEAN CORPUSCULAR VOLUME 90 fl (80-97); PLATELET COUNT 224 10^3/uL (150-450); RED BLOOD COUNT 3.73 10^6/uL (3.72-5.28); RED CELL DISTRIBUTION WIDTH 13.8 % (11.5-14.0); WHITE BLOOD COUNT 24.3 10^3/uL (4.0-10.5)
[2018-08-13 04:36] LABS: ANION GAP 6 (5-19); BLOOD UREA NITROGEN 19 mg/dL (7-20); CALCIUM 8.6 mg/dL (8.4-10.2); CARBON DIOXIDE 25 mmol/L (22-30); CHLORIDE 107 mmol/L (98-107); GLUCOSE 137 mg/dL (75-110); POTASSIUM 3.9 mmol/L (3.6-5.0); SODIUM 138.3 mmol/L (137-145)
[2018-08-13 04:48] LABS: ARTERIAL BLOOD BASE EXCESS 0.4 mmol/L; ARTERIAL BLOOD H2CO3 1.02 mmol/L (1.05-1.35); ARTERIAL BLOOD HCO3 23.7 mmol/L (20-24); ARTERIAL BLOOD O2 SATURATION 94.6 % (94-98); ARTERIAL BLOOD PCO2 33.9 mmHg (35-45); ARTERIAL BLOOD PH 7.46 (7.35-7.45); ARTERIAL BLOOD PO2 67.7 mmHg (80-100); ARTERIAL BLOOD TOTAL CO2 24.7 mmol/L (21-25)
[2018-08-13 04:49] LABS: ARTERIAL BLOOD FIO2 25
[2018-08-13] MEDS: METHYLPREDNISOLONE INJ 40 MG/1 ML SDV IV SCH ×3 (06:34→21:40)
[2018-08-13] MEDS: MIDAZOLAM HCL 50 MG/100 ML RTUINJ IV-INFUSE PRN (06:36)
[2018-08-13] MEDS: NORMAL SALINE 1000 ML 1,000 ML IV PRN ×2 (06:39→18:25)
--- NOTE | 2018-08-13 08:40 | RADIOLOGY REPORT (SQ) ---
EXAM DESCRIPTION: CHEST SINGLE VIEW COMPLETED DATE/TIME: 08/13/2018 6:51 am REASON FOR STUDY: pna/resp failure COMPARISON: 08/11/2018. EXAM PARAMETERS: NUMBER OF VIEWS: One view. TECHNIQUE: Single frontal radiographic view of the chest acquired. RADIATION DOSE: NA LIMITATIONS: None. FINDINGS: LUNGS AND PLEURA: Improved aeration with clearing of the left basilar density. Faint resi dual density in the right lung base. MEDIASTINUM AND HILAR STRUCTURES: No masses. Contour normal. HEART AND VASCULAR STRUCTURES: Heart normal in size. Normal vasculature. BONES: No acute findings. HARDWARE: Stable endotracheal tube and nasogastric tube. OTHER: No other significant finding. IMPRESSION: IMPROVED APPEARANCE OF THE CHEST WITH CLEARING OF THE LEFT BASILAR DENSITY. FAINT RESID UAL DENSITY IN THE RIGHT LUNG BASE. TECHNICAL DOCUMENTATION: JOB ID: [id number] [employer]- All Rights Reserved Reading location - IP/workstation name: [email or web address]
[2018-08-13] MEDS ORDERED: FENTANYL CITRATE INJ/PF 100 MCG/2 ML AMPUL IV PRN (08:47)
[2018-08-13] MEDS ORDERED: OXYCODONE HCL IR 5 MG TABLET PO SCH ×2 (09:00→09:30)
[2018-08-13] MEDS: ATENOLOL 50 MG TABLET PO SCH (09:41)
[2018-08-13] MEDS: LISINOPRIL 10 MG TABLET PO SCH (09:41)
[2018-08-13] MEDS: HYDROCHLOROTHIAZIDE 12.5 MG TABLET PO SCH (09:41)
[2018-08-13] MEDS: ENOXAPARIN SODIUM INJ 40 MG/0.4 ML DISP.SYRIN SUBCUT SCH (09:42)
[2018-08-13] MEDS: AZITHROMYCIN 500 MG in DEXTROSE 5%-WATER 250 ML IV SCH (09:58)
[2018-08-13] MEDS ORDERED: ATENOLOL 50 MG TABLET PO SCH (10:00)
[2018-08-13] MEDS ORDERED: (PENDING PHARMACY ID) (Atenolol [Tenormin 100 Mg Tablet] 100 MG) PO SCH (10:00)
[2018-08-13] MEDS ORDERED: METHYLPREDNISOLONE INJ 40 MG/1 ML SDV IV SCH (14:00)
--- NOTE | 2018-08-13 14:06 | PDOC PROGRESS REPORT ---
Subjective Progress Note for:: 08/13/18 Subjective:: intubated and sedated, per nursing patient has had a relatively uneventful night , hypotension resolved with pressors and she is now hypertensive, Levophed has been discontinued. She has been tachycardic. Been following commands. She is on minimal vent settings though not yet on pressure support ventilation. Grajeda catheter in place, draining clear yellow urine. Reason For Visit: ACUTE RESPIRATORY FAILURE, HYPOTENSION Physical Exam Vital Signs: Temp Pulse Resp BP Pulse Ox 99.9 F 78 15 188/96 H 97 08/13/18 12:00 08/13/18 12:00 08/13/18 12:00 08/13/18 12:00 08/13/18 12:00 Intake & Output 08/12/18 08/13/18 08/14/18 06:59 06:59 06:59 Intake Total 1331 3910 109 Output Total 2975 1735 445 Balance -1644 2175 -336 Weight 81.1 kg 77.4 kg General appearance: PRESENT: mild distress Head exam: PRESENT: atraumatic, normocephalic Eye exam: ABSENT: conjunctival injection, scleral icterus Ear exam: PRESENT: normal external ear exam Mouth exam: PRESENT: dry mucosa Respiratory exam: PRESENT: clear to auscultation jennifer. ABSENT: rhonchi, wheezes Cardiovascular exam: PRESENT: tachycardia. ABSENT: systolic murmur Pulses: PRESENT: normal radial pulses GI/Abdominal exam: PRESENT: normal bowel sounds, soft. ABSENT: distended, tenderness Rectal exam: PRESENT: deferred Gentrourinary exam: PRESENT: indwelling catheter Extremities exam: ABSENT: pedal edema Musculoskeletal exam: PRESENT: normal inspection Neurological exam: PRESENT: other - Sedated with propofol, Versed DC'd within the last few hours.. ABSENT: alert Psychiatric exam: PRESENT: other - Cannot assess due to intubation and sedation Skin exam: PRESENT: dry, intact, warm Results Laboratory Results: 08/13/18 03:53 08/13/18 03:53 08/12/18 08/13/18 08/13/18 04:06 03:53 03:53 WBC 24.3 H RBC 3.73 Hgb 11.5 L Hct 33.5 L MCV 90 MCH 30.7 MCHC 34.2 RDW 13.8 Plt Count 224 Carbonic Acid HCO3/H2CO3 Ratio ABG pH ABG pCO2 ABG pO2 ABG HCO3 ABG O2 Saturation ABG Base Excess FiO2 Sodium 138.3 Potassium 3.9 Chloride 107 Carbon Dioxide 25 Anion Gap 6 BUN 19 Creatinine 0.84 Est GFR ( Amer) > 60 Est GFR (Non-Af Amer) > 60 Glucose 137 H Calcium 8.6 Magnesium 2.6 H 2.3 08/13/18 04:40 WBC RBC Hgb Hct MCV MCH MCHC RDW Plt Count Carbonic Acid 1.02 L HCO3/H2CO3 Ratio 23:1 ABG pH 7.46 H ABG pCO2 33.9 L ABG pO2 67.7 L ABG HCO3 23.7 ABG O2 Saturation 94.6 ABG Base Excess 0.4 FiO2 25 Sodium Potassium Chloride Carbon Dioxide Anion Gap BUN Creatinine Est GFR ( Amer) Est GFR (Non-Af Amer) Glucose Calcium Magnesium 08/12/18 04:06 NT-Pro-B Natriuret Pep 711 Impressions: Chest/Abdomen CTA 08/11/18 15:17 IMPRESSION: Bilateral lower lobe airspace disease -atelectasis, left greater than right. No emboli visualized in the main pulmonary arteries or the segmental branches. Chest X-Ray 08/13/18 06:00 IMPRESSION: IMPROVED APPEARANCE OF THE CHEST WITH CLEARING OF THE LEFT BASILAR DENSITY. FAINT RESIDUAL DENSITY IN THE RIGHT LUNG BASE. Assessment & Plan - Diagnosis (1) Asthma exacerbation Qualifiers: Asthma severity: severe Is this a current diagnosis for this admission?: Yes Plan: Patient has diagnosis of asthma but not COPD. She has been a moderately heavy smoker up until several years ago. She was diagnosed with COPD exacerbation during an episode of acute hypoxemic respiratory failure for which she has been intubated. She is recovering from a pulmonary perspective. For now she will continue with steroids and taper antibiotics, albuterol and ipratropium. She is being followed by Dr. Goins for vent management. (2) Tachycardia Is this a current diagnosis for this admission?: Yes Plan: Probably multifactorial. She has chronic pain and has not been on her chronic opiates or her gabapentin. Also she has been off of her beta-darby for at least a day. She may be uncomfortable, anxious with the ventilator in place. I started her atenolol 100 mg p.o. daily. I started her gabapentin and we are working on controlling her pain. Heart rate is improving today. (3) Chronic pain Qualifiers: Chronic pain type: chronic pain syndrome Qualified Code(s): G89.4 - Chronic pain syndrome Is this a current diagnosis for this admission?: Yes Plan: Patient takes oxycodone, per chart 5 times a day scheduled. Her mother does not really know whether this is as needed or scheduled. I started her on oxycodone 10 mg 4 times a day versus 5 times a day and have made as needed fentanyl available. I have also started her gabapentin. (4) Opiate dependence, continuous Is this a current diagnosis for this admission?: Yes Plan: She is now on code own 4 times a day with as needed fentanyl for breakthrough pain. Will monitor her closely. I started her on 10 mg of oxycodone 4 times a day instead of 5 times a day scheduled which is how it is prescribed in the medical record. Again, will monitor closely for safety. (5) Acute respiratory failure with hypoxemia Is this a current diagnosis for this admission?: Yes Plan: Multifactorial with asthma exacerbation, possible COPD, pneumonia. Please see treatment for asthma exacerbation and also will continue azithromycin and ceftriaxone until sputum cultures are final. (6) Hypertension Qualifiers: Hypertension type: essential hypertension Qualified Code(s): I10 - Essential (primary) hypertension Is this a current diagnosis for this admission?: Yes Plan: And is now back on her atenolol 100 mg daily and lisinopril 40 mg daily. With this and pain management her blood pressure is starting to improve back towards normotension. - Time Time Spent with patient: 35 or more minutes Medications reviewed and adjusted accordingly: Yes - Inpatient Certification Based on my medical assessment, after consideration of the patient's comorbidities, presenting symptoms, or acuity I expect that the services needed warrant INPATIENT care.: Yes I certify that my determination is in accordance with my understanding of Medicare's requirements for reasonable and necessary INPATIENT services [42 CFR 412.3e].: Yes Medical Necessity: Need Close Monitoring Due to Risk of Patient Decompensation, Need for IV Antibiotics, Risk of Complication if Not Cared For in Hospital
[2018-08-13] MEDS: CEFTRIAXONE SODIUM 1,000 MG in DEXTROSE 5%-WATER 50 ML IV SCH (14:12)
[2018-08-13] MEDS: OXYCODONE HCL IR 5 MG TABLET PO SCH ×3 (14:16→23:07)
[2018-08-13] MEDS: GABAPENTIN 400 MG CAPSULE PO SCH ×2 (14:17→21:39)
[2018-08-13] MEDS: FAMOTIDINE INJ/PF 20 MG/2 ML SDV IV SCH (21:40)
[2018-08-14] MEDS: PROPOFOL 1,000 MG/100 ML INFUS..BTL IV PRN ×2 (01:03→10:02)
[2018-08-14] MEDS: NORMAL SALINE 1000 ML 1,000 ML IV PRN ×3 (02:02→22:25)
[2018-08-14] MEDS: FENTANYL CITRATE INJ/PF 100 MCG/2 ML AMPUL IV PRN ×2 (03:31→15:23)
[2018-08-14 04:26] LABS: ANION GAP 8 (5-19); BLOOD UREA NITROGEN 25 mg/dL (7-20); CALCIUM 8.3 mg/dL (8.4-10.2); CARBON DIOXIDE 22 mmol/L (22-30); CHLORIDE 107 mmol/L (98-107); GLUCOSE 116 mg/dL (75-110); HEMATOCRIT 32.9 % (36.0-47.0); HEMOGLOBIN 11.3 g/dL (12.0-15.5); MEAN CORPUSCULAR HEMOGLOBIN 30.9 pg (27.0-33.4); MEAN CORPUSCULAR HGB CONC 34.3 g/dL (32.0-36.0); MEAN CORPUSCULAR VOLUME 90 fl (80-97); PLATELET COUNT 233 10^3/uL (150-450); POTASSIUM 3.9 mmol/L (3.6-5.0); RED BLOOD COUNT 3.65 10^6/uL (3.72-5.28); RED CELL DISTRIBUTION WIDTH 13.7 % (11.5-14.0); SODIUM 136.8 mmol/L (137-145); WHITE BLOOD COUNT 18.4 10^3/uL (4.0-10.5)
[2018-08-14 04:45] LABS: ARTERIAL BLOOD BASE EXCESS 0.5 mmol/L; ARTERIAL BLOOD FIO2 25%; ARTERIAL BLOOD H2CO3 1.12 mmol/L (1.05-1.35); ARTERIAL BLOOD HCO3 24.5 mmol/L (20-24); ARTERIAL BLOOD O2 SATURATION 94.8 % (94-98); ARTERIAL BLOOD PCO2 37.1 mmHg (35-45); ARTERIAL BLOOD PH 7.44 (7.35-7.45); ARTERIAL BLOOD PO2 70.6 mmHg (80-100); ARTERIAL BLOOD TOTAL CO2 25.7 mmol/L (21-25)
[2018-08-14] MEDS: OXYCODONE HCL IR 5 MG TABLET PO SCH ×3 (05:51→18:27)
[2018-08-14] MEDS: GABAPENTIN 400 MG CAPSULE PO SCH ×3 (05:52→22:19)
[2018-08-14] MEDS ORDERED: AMLODIPINE BESYLATE 5 MG TABLET PO ONE ×2 (06:08→09:15)
--- NOTE | 2018-08-14 06:46 | RADIOLOGY REPORT (SQ) ---
EXAM DESCRIPTION: XR CHEST 1 VIEW COMPLETED DATE/TME: 08/14/2018 06:00 CLINICAL HISTORY: 57 years Female, resp failure COMPARISON: One day prior, report only. NUMBER OF VIEWS/TECHNIQUE: 1/AP FINDINGS: Prominent interstitium, minimal left basilar atelectasis or scar, and normal cardiac silhouette. Adequate appearing enteric tube obscured distally, and tracheal tube tip is 5.1 cm from the rubén. No pneumothorax. Stable bony thorax. IMPRESSION: No significant change.
[2018-08-14] MEDS: HYDRALAZINE HCL INJ/PF 20 MG/1 ML SDV IV PRN ×2 (08:14→15:04)
[2018-08-14] MEDS ORDERED: LORAZEPAM INJ 2 MG/1 ML VIAL IV PRN (08:22)
[2018-08-14] MEDS ORDERED: LORAZEPAM INJ 2 MG/1 ML VIAL ONE (08:24)
[2018-08-14] MEDS: LORAZEPAM INJ 2 MG/1 ML VIAL IV PRN ×3 (08:25→18:28)
--- NOTE | 2018-08-14 08:41 | PDOC PROGRESS REPORT ---
Subjective Progress Note for:: 08/14/18 Subjective:: intubated and sedated, per RN uneventful night except BP has been elevated this am, has gotten one dose of norvasc. Propofol is guzman weaned for eval for possible exubation. Yesterday she was unable to arouse sufficiently to follow commands and was nt foudn to be safe for extubation. Reason For Visit: ACUTE RESPIRATORY FAILURE, HYPOTENSION Physical Exam Vital Signs: Temp Pulse Resp BP Pulse Ox 98.2 F 64 20 175/94 H 100 08/14/18 06:41 08/13/18 19:00 08/14/18 06:41 08/14/18 06:41 08/14/18 07:26 Intake & Output 08/13/18 08/14/18 08/15/18 06:59 06:59 06:59 Intake Total 3960 2572 Output Total 1735 2205 Balance 2225 367 Weight 77.4 kg 82 kg General appearance: PRESENT: no acute distress, obese Head exam: PRESENT: atraumatic Eye exam: ABSENT: conjunctival injection, scleral icterus Ear exam: PRESENT: normal external ear exam Mouth exam: PRESENT: moist Neck exam: ABSENT: lymphadenopathy, tracheal deviation Respiratory exam: PRESENT: clear to auscultation jennifer, unlabored. ABSENT: rales , rhonchi, wheezes Cardiovascular exam: PRESENT: RRR. ABSENT: systolic murmur Pulses: PRESENT: normal radial pulses, +2 pedal pulses bilateral GI/Abdominal exam: PRESENT: normal bowel sounds, soft. ABSENT: distended, firm , tenderness Rectal exam: PRESENT: deferred Gentrourinary exam: PRESENT: indwelling catheter - clear yellow urine Musculoskeletal exam: PRESENT: normal inspection Neurological exam: PRESENT: other - intubated and sedated Skin exam: PRESENT: dry, intact, warm. ABSENT: jaundice Results Laboratory Results: 08/14/18 03:55 08/14/18 03:55 08/14/18 08/14/18 08/14/18 03:55 03:55 04:30 WBC 18.4 H RBC 3.65 L Hgb 11.3 L Hct 32.9 L MCV 90 MCH 30.9 MCHC 34.3 RDW 13.7 Plt Count 233 Carbonic Acid 1.12 HCO3/H2CO3 Ratio 21:1 ABG pH 7.44 ABG pCO2 37.1 ABG pO2 70.6 L ABG HCO3 24.5 H ABG O2 Saturation 94.8 ABG Base Excess 0.5 FiO2 25% Sodium 136.8 L Potassium 3.9 Chloride 107 Carbon Dioxide 22 Anion Gap 8 BUN 25 H Creatinine 0.91 Est GFR ( Amer) > 60 Est GFR (Non-Af Amer) > 60 Glucose 116 H Calcium 8.3 L Magnesium 2.1 08/12/18 04:06 NT-Pro-B Natriuret Pep 711 Impressions: Chest/Abdomen CTA 08/11/18 15:17 IMPRESSION: Bilateral lower lobe airspace disease -atelectasis, left greater than right. No emboli visualized in the main pulmonary arteries or the segmental branches. Chest X-Ray 08/14/18 06:00 IMPRESSION: No significant change. Assessment & Plan - Diagnosis (1) Asthma exacerbation Qualifiers: Asthma severity: severe Is this a current diagnosis for this admission?: Yes Plan: improving from resp standpoint. doing ok on PS vent this am. Cont steroid wean , ABX, bronchodilators. (2) Tachycardia Is this a current diagnosis for this admission?: Yes Plan: resolved once we restarted her atenolol 100 mg po daily, via NG tube (3) Chronic pain Qualifiers: Chronic pain type: chronic pain syndrome Qualified Code(s): G89.4 - Chronic pain syndrome Is this a current diagnosis for this admission?: Yes Plan: unknown details, per med review she is on scheduled oxycodone 5 x daily, 10 mg tabs. Also on scheduled naproxen. Have added oxycodone 10 mg QID and will hold next dose to prevent possible sedation as we eval her for possible extubation. Naproxen started. (4) Opiate dependence, continuous Is this a current diagnosis for this admission?: Yes Plan: see above. (5) Acute respiratory failure with hypoxemia Is this a current diagnosis for this admission?: Yes Plan: doing ok on PS vent except that she is not waking up sufficiently to follow commands, she is groggy and not able to awaken fully. Has been off of versed for about 24 hours. (6) Hypertension Qualifiers: Hypertension type: essential hypertension Qualified Code(s): I10 - Essential (primary) hypertension Is this a current diagnosis for this admission?: Yes Plan: BP increasing this am and has been somewhat difficult to control. ALso she is started to become agitated, yesterday elevated HR but now on atenolol. I have just been given the info that daughter thinks she is taking zanax for anxiety, not on her med list. WIll treat elevated BP for now with ativan for possible benzo withdrawal. (7) Benzodiazepine withdrawal with delirium Is this a current diagnosis for this admission?: Yes Plan: I am presuming this now based on her agitation, vitals and new info from daughter that she is likely taking xanax and this is not on her med list. Ativan 2 mg IV q 4 hrs prn agitation and elevated BP. Will follow closely. - Time Time Spent with patient: 25-34 minutes Disposition: will work towards extubation today - Inpatient Certification Based on my medical assessment, after consideration of the patient's comorbidities, presenting symptoms, or acuity I expect that the services needed warrant INPATIENT care.: Yes I certify that my determination is in accordance with my understanding of Medicare's requirements for reasonable and necessary INPATIENT services [42 CFR 412.3e].: Yes Medical Necessity: Significant Comorbidiites Make Outpatient Treatment Too Risky , Need For Continuous Telemetry Monitoring, Need for Neurological Checks
[2018-08-14] MEDS: AZITHROMYCIN 500 MG in DEXTROSE 5%-WATER 250 ML IV SCH (10:02)
[2018-08-14] MEDS: ATENOLOL 50 MG TABLET PO SCH (10:03)
[2018-08-14] MEDS: LISINOPRIL 10 MG TABLET PO SCH (10:03)
[2018-08-14] MEDS: HYDROCHLOROTHIAZIDE 12.5 MG TABLET PO SCH (10:03)
[2018-08-14] MEDS: NAPROXEN 250 MG TABLET PO SCH ×2 (10:04→22:19)
[2018-08-14] MEDS: METHYLPREDNISOLONE INJ 40 MG/1 ML SDV IV SCH ×2 (10:05→22:20)
[2018-08-14] MEDS: ENOXAPARIN SODIUM INJ 40 MG/0.4 ML DISP.SYRIN SUBCUT SCH (10:05)
[2018-08-14] MEDS ORDERED: DEXAMETHASONE SOD PHOSPHATE INJ 4 MG/1 ML VIAL ONE (11:50)
[2018-08-14] MEDS: CEFTRIAXONE SODIUM 1,000 MG in DEXTROSE 5%-WATER 50 ML IV SCH (13:33)
[2018-08-14 16:07] LABS: ARTERIAL BLOOD H2CO3 0.92 mmol/L (1.05-1.35); ARTERIAL BLOOD HCO3 24.1 mmol/L (20-24); ARTERIAL BLOOD PCO2 30.6 mmHg (35-45); ARTERIAL BLOOD PH 7.52 (7.35-7.45); ARTERIAL BLOOD PO2 71.8 mmHg (80-100); ARTERIAL BLOOD TOTAL CO2 25.1 mmol/L (21-25)
[2018-08-14 16:09] LABS: ARTERIAL BLOOD FIO2 25%
[2018-08-14] MEDS ORDERED: OXYCODONE HCL IR 5 MG TABLET PO ONE (21:45)
[2018-08-14] MEDS: FAMOTIDINE INJ/PF 20 MG/2 ML SDV IV SCH (22:20)
[2018-08-15] MEDS: HYDRALAZINE HCL INJ/PF 20 MG/1 ML SDV IV PRN ×4 (00:46→22:51)
[2018-08-15] MEDS: LORAZEPAM INJ 2 MG/1 ML VIAL IV PRN (02:04)
[2018-08-15] MEDS: OXYCODONE HCL IR 5 MG TABLET PO SCH ×4 (03:56→20:54)
[2018-08-15 04:22] LABS: HEMOGLOBIN 10.7 g/dL (12.0-15.5); MEAN CORPUSCULAR HEMOGLOBIN 30.9 pg (27.0-33.4); MEAN CORPUSCULAR HGB CONC 34.4 g/dL (32.0-36.0); MEAN CORPUSCULAR VOLUME 90 fl (80-97); PLATELET COUNT 194 10^3/uL (150-450); RED BLOOD COUNT 3.46 10^6/uL (3.72-5.28); RED CELL DISTRIBUTION WIDTH 13.5 % (11.5-14.0); WHITE BLOOD COUNT 19.8 10^3/uL (4.0-10.5)
[2018-08-15 04:43] LABS: ANION GAP 7 (5-19); BLOOD UREA NITROGEN 25 mg/dL (7-20); CALCIUM 9.1 mg/dL (8.4-10.2); CARBON DIOXIDE 25 mmol/L (22-30); CHLORIDE 112 mmol/L (98-107); GLUCOSE 95 mg/dL (75-110); POTASSIUM 3.3 mmol/L (3.6-5.0); SODIUM 144.2 mmol/L (137-145)
[2018-08-15 05:27] LABS: ARTERIAL BLOOD BASE EXCESS 4.1 mmol/L; ARTERIAL BLOOD H2CO3 1.11 mmol/L (1.05-1.35); ARTERIAL BLOOD HCO3 27.6 mmol/L (20-24); ARTERIAL BLOOD O2 SATURATION 96.4 % (94-98); ARTERIAL BLOOD PH 7.49 (7.35-7.45); ARTERIAL BLOOD PO2 78.1 mmHg (80-100); ARTERIAL BLOOD TOTAL CO2 28.7 mmol/L (21-25)
[2018-08-15 05:31] LABS: ARTERIAL BLOOD FIO2 3L
[2018-08-15] MEDS: GABAPENTIN 400 MG CAPSULE PO SCH ×3 (05:39→22:04)
[2018-08-15] MEDS: NORMAL SALINE 1000 ML 1,000 ML IV PRN (05:41)
--- NOTE | 2018-08-15 07:25 | RADIOLOGY REPORT (SQ) ---
EXAM DESCRIPTION: XR CHEST 1 VIEW COMPLETED DATE/TME: 08/15/2018 06:00 CLINICAL HISTORY: 57 years Female, resp fail/pna COMPARISON: One day prior. NUMBER OF VIEWS/TECHNIQUE: 1/AP FINDINGS: Moderate mixed interstitial and airspace opacities, normal cardiac silhouette size, atherosclerosis, lower cervical hardware. No pneumothorax. Stable bony thorax. IMPRESSION: Worsening includes moderate mixed interstitial and airspace opacity.
[2018-08-15] MEDS: LISINOPRIL 10 MG TABLET PO SCH (10:48)
[2018-08-15] MEDS: ATENOLOL 50 MG TABLET PO SCH (10:48)
[2018-08-15] MEDS: NAPROXEN 250 MG TABLET PO SCH (10:49)
[2018-08-15] MEDS: METHYLPREDNISOLONE INJ 40 MG/1 ML SDV IV SCH ×2 (10:49→22:04)
[2018-08-15] MEDS: AZITHROMYCIN 500 MG in DEXTROSE 5%-WATER 250 ML IV SCH (10:50)
[2018-08-15] MEDS: HYDROCHLOROTHIAZIDE 12.5 MG TABLET PO SCH (10:50)
[2018-08-15] MEDS: ENOXAPARIN SODIUM INJ 40 MG/0.4 ML DISP.SYRIN SUBCUT SCH (10:51)
[2018-08-15] MEDS: FENTANYL CITRATE INJ/PF 100 MCG/2 ML AMPUL IV PRN ×2 (11:20→19:24)
--- NOTE | 2018-08-15 11:37 | PDOC CONSULTATION ---
Consultation Consult Date: 08/12/18 Attending physician:: FRANC HINOJOSA Consult reason:: Acute respiratory failure History of Present Illness Admission Date/PCP: 08/11/18 16:06 FRANC HINOJOSA History of Present Illness: EMILY PETTIT is a 57 year old female treated for pneumonia she subsequently lost consciousness was found to be hypoxic intubated and sent to the ICU distant history of smoking history of hemoptysis or childhood respiratory illnesses as per family Past Medical History Cardiac Medical History: Reports: Hyperlipidema, Hypertension Pulmonary Medical History: Reports: Asthma GI Medical History: Reports: Gastroesophageal Reflux Disease Psychiatric Medical History: Reports: Depression Past Surgical History Past Surgical History: Reports: Hysterectomy, Orthopedic Surgery - neck, right foot, elbow, back, Tonsillectomy Social History Information Source: Relative, [facility] Records Smoking Status: Never Smoker Frequency of Alcohol Use: None Hx Recreational Drug Use: No Drugs: None Hx Prescription Drug Abuse: No - Advance Directive Resuscitation Status: Full Code Family History Family History: Hypertension Parental Family History Reviewed: No Children Family History Reviewed: No Sibling(s) Family History Reviewed.: No Medication/Allergy Home Medications: Atenolol [Tenormin 100 mg Tablet] 100 mg PO DAILY 08/11/18 Cyclobenzaprine HCl [Flexeril 10 mg Tablet] 10 mg PO TIDP PRN 08/11/18 Gabapentin [Neurontin] 800 mg PO TID 08/11/18 Hydrochlorothiazide [Hydrodiuril 12.5 mg Capsule] 12.5 mg PO DAILY 08/11/18 Lisinopril [Prinivil 40 mg Tablet] 40 mg PO DAILY 08/11/18 Naproxen [Naprosyn 250 mg Tablet] 500 mg PO Q12 08/11/18 Oxycodone HCl/Acetaminophen [Percocet 10-325 mg Tablet] 1 tab PO 5XD 08/11/18 Allergies/Adverse Reactions: No Known Allergies Allergy (Verified 05/19/17 09:04) Review of Systems ROS unobtainable: Due to endotracheal tube, Due to mental status Physical Exam Vital Signs: Temp Pulse Resp BP Pulse Ox 97.7 F 71 15 117/67 96 08/12/18 08:00 08/12/18 08:00 08/12/18 08:00 08/12/18 08:00 08/12/18 08:00 Intake & Output 08/11/18 08/12/18 08/13/18 06:59 06:59 06:59 Intake Total 1081 83 Output Total 2975 400 Balance -1894 -317 Weight 81.1 kg General appearance: PRESENT: no acute distress, disheveled, well-developed, well -nourished. ABSENT: cooperative Head exam: PRESENT: atraumatic, normocephalic Eye exam: PRESENT: conjunctiva pale. ABSENT: nystagmus, periorbital swelling, scleral icterus Mouth exam: PRESENT: dry mucosa, neck supple, tongue midline, other - ET tube in place Neck exam: ABSENT: carotid bruit, JVD, lymphadenopathy, thyromegaly, tracheal deviation, tracheostomy Respiratory exam: PRESENT: decreased breath sounds, prolonged expiratory phas, rales, rhonchi, unlabored. ABSENT: retraction, stridor Cardiovascular exam: PRESENT: RRR, +S1, +S2, tachycardia Pulses: PRESENT: normal radial pulses Extremities exam: ABSENT: calf tenderness, clubbing, joint swelling, pedal edema Musculoskeletal exam: ABSENT: deformity, dislocation Neurological exam: ABSENT: awake Skin exam: PRESENT: dry, warm Results Laboratory Results: 08/12/18 04:06 08/12/18 04:06 08/11/18 08/12/18 08/12/18 17:49 04:06 04:06 WBC 18.6 H RBC 3.89 Hgb 12.1 Hct 34.9 L MCV 90 MCH 31.2 MCHC 34.7 RDW 13.7 Plt Count 208 Carbonic Acid 1.70 H HCO3/H2CO3 Ratio 17:1 ABG pH 7.34 L ABG pCO2 56.6 H ABG pO2 67.9 L ABG HCO3 29.5 H ABG O2 Saturation 92.1 L ABG Base Excess 2.1 FiO2 40% Sodium 140.5 Potassium 3.9 Chloride 107 Carbon Dioxide 25 Anion Gap 9 BUN 15 Creatinine 0.86 Est GFR ( Amer) > 60 Est GFR (Non-Af Amer) > 60 Glucose 154 H Calcium 9.0 08/12/18 07:40 WBC RBC Hgb Hct MCV MCH MCHC RDW Plt Count Carbonic Acid 1.29 HCO3/H2CO3 Ratio 22:1 ABG pH 7.45 ABG pCO2 42.9 ABG pO2 77.3 L ABG HCO3 29.0 H ABG O2 Saturation 95.9 ABG Base Excess 4.5 FiO2 40% Sodium Potassium Chloride Carbon Dioxide Anion Gap BUN Creatinine Est GFR ( Amer) Est GFR (Non-Af Amer) Glucose Calcium 08/12/18 04:06 NT-Pro-B Natriuret Pep 711 Impressions: Chest X-Ray 08/11/18 13:59 IMPRESSION: Linear atelectasis in the left base. No other significant findings. Chest/Abdomen CTA 08/11/18 15:17 IMPRESSION: Bilateral lower lobe airspace disease -atelectasis, left greater than right. No emboli visualized in the main pulmonary arteries or the segmental branches. Assessment & Plan - Diagnosis (1) Acute respiratory failure with hypoxemia Is this a current diagnosis for this admission?: Yes Plan: Oxygenate and ventilate to maintain SaO2 greater than 90 ph within the normal range (2) Benzodiazepine withdrawal with delirium Is this a current diagnosis for this admission?: Yes (3) Hypertension Qualifiers: Hypertension type: essential hypertension Qualified Code(s): I10 - Essential (primary) hypertension Is this a current diagnosis for this admission?: Yes Plan: Stable at this time - Time Total Critical Time (Minutes): 50
--- NOTE | 2018-08-15 11:39 | PDOC PROGRESS REPORT ---
Subjective Progress Note for:: 08/13/18 Subjective:: Very agitated during sedation vacation Reason For Visit: ACUTE RESPIRATORY FAILURE, HYPOTENSION Physical Exam Vital Signs: Temp Pulse Resp BP Pulse Ox 97.5 F 63 19 167/84 H 95 08/13/18 08:00 08/13/18 08:00 08/13/18 08:00 08/13/18 08:00 08/13/18 08:00 Intake & Output 08/12/18 08/13/18 08/14/18 06:59 06:59 06:59 Intake Total 1331 3660 Output Total 2975 1735 60 Balance -1644 1925 -60 Weight 81.1 kg 77.4 kg General appearance: PRESENT: no acute distress, disheveled, well-developed, well -nourished. ABSENT: cooperative Head exam: PRESENT: atraumatic, normocephalic Eye exam: PRESENT: conjunctiva pale, EOMI. ABSENT: nystagmus, scleral icterus Mouth exam: PRESENT: dry mucosa, neck supple, tongue midline, other - ET tube in place Neck exam: ABSENT: carotid bruit, JVD, lymphadenopathy, thyromegaly, tracheal deviation, tracheostomy Respiratory exam: PRESENT: decreased breath sounds, prolonged expiratory phas, rales, rhonchi, unlabored. ABSENT: retraction, stridor Cardiovascular exam: PRESENT: RRR, +S1, +S2, tachycardia Pulses: PRESENT: normal radial pulses GI/Abdominal exam: PRESENT: soft. ABSENT: tenderness Extremities exam: ABSENT: calf tenderness, clubbing, joint swelling Musculoskeletal exam: ABSENT: deformity, dislocation Neurological exam: PRESENT: altered Skin exam: PRESENT: dry, warm Results Laboratory Results: 08/13/18 03:53 08/13/18 03:53 08/12/18 08/13/18 08/13/18 04:06 03:53 03:53 WBC 24.3 H RBC 3.73 Hgb 11.5 L Hct 33.5 L MCV 90 MCH 30.7 MCHC 34.2 RDW 13.8 Plt Count 224 Carbonic Acid HCO3/H2CO3 Ratio ABG pH ABG pCO2 ABG pO2 ABG HCO3 ABG O2 Saturation ABG Base Excess FiO2 Sodium 138.3 Potassium 3.9 Chloride 107 Carbon Dioxide 25 Anion Gap 6 BUN 19 Creatinine 0.84 Est GFR ( Amer) > 60 Est GFR (Non-Af Amer) > 60 Glucose 137 H Calcium 8.6 Magnesium 2.6 H 2.3 08/13/18 04:40 WBC RBC Hgb Hct MCV MCH MCHC RDW Plt Count Carbonic Acid 1.02 L HCO3/H2CO3 Ratio 23:1 ABG pH 7.46 H ABG pCO2 33.9 L ABG pO2 67.7 L ABG HCO3 23.7 ABG O2 Saturation 94.6 ABG Base Excess 0.4 FiO2 25 Sodium Potassium Chloride Carbon Dioxide Anion Gap BUN Creatinine Est GFR ( Amer) Est GFR (Non-Af Amer) Glucose Calcium Magnesium 08/12/18 04:06 NT-Pro-B Natriuret Pep 711 Impressions: Chest/Abdomen CTA 08/11/18 15:17 IMPRESSION: Bilateral lower lobe airspace disease -atelectasis, left greater than right. No emboli visualized in the main pulmonary arteries or the segmental branches. Chest X-Ray 08/13/18 06:00 IMPRESSION: IMPROVED APPEARANCE OF THE CHEST WITH CLEARING OF THE LEFT BASILAR DENSITY. FAINT RESIDUAL DENSITY IN THE RIGHT LUNG BASE. Assessment & Plan - Diagnosis (1) Acute respiratory failure with hypoxemia Is this a current diagnosis for this admission?: Yes Plan: Oxygenate and ventilate to maintain SaO2 greater than 90 ph within the normal range (2) Benzodiazepine withdrawal with delirium Is this a current diagnosis for this admission?: Yes (3) Hypertension Qualifiers: Hypertension type: essential hypertension Qualified Code(s): I10 - Essential (primary) hypertension Is this a current diagnosis for this admission?: Yes Plan: Stable at this time - Time Total Critical Time (Minutes): 40
--- NOTE | 2018-08-15 11:42 | PDOC PROGRESS REPORT ---
Subjective Progress Note for:: 08/14/18 Subjective:: Calmer today will extubate to bipap Reason For Visit: ACUTE RESPIRATORY FAILURE, HYPOTENSION Physical Exam Vital Signs: Temp Pulse Resp BP Pulse Ox 98.1 F 67 18 159/76 H 96 08/14/18 10:00 08/14/18 10:00 08/14/18 10:00 08/14/18 10:00 08/14/18 10:00 Intake & Output 08/13/18 08/14/18 08/15/18 06:59 06:59 06:59 Intake Total 3960 2572 1100 Output Total 1735 2205 1000 Balance 2225 367 100 Weight 77.4 kg 82 kg General appearance: PRESENT: no acute distress, cooperative, disheveled, well- developed, well-nourished Head exam: PRESENT: atraumatic, normocephalic Eye exam: PRESENT: conjunctiva pale, EOMI. ABSENT: nystagmus, periorbital swelling, scleral icterus Mouth exam: PRESENT: dry mucosa, neck supple, tongue midline, other - ET tube in place Neck exam: ABSENT: carotid bruit, JVD, lymphadenopathy, thyromegaly, tracheal deviation, tracheostomy Respiratory exam: PRESENT: decreased breath sounds, prolonged expiratory phas, rhonchi, unlabored. ABSENT: retraction, stridor Cardiovascular exam: PRESENT: RRR, +S1, +S2 Pulses: PRESENT: normal radial pulses GI/Abdominal exam: PRESENT: soft. ABSENT: tenderness Gentrourinary exam: PRESENT: indwelling catheter Extremities exam: ABSENT: calf tenderness, clubbing, joint swelling Musculoskeletal exam: ABSENT: deformity, dislocation Neurological exam: PRESENT: awake Skin exam: PRESENT: dry, warm Results Laboratory Results: 08/14/18 03:55 08/14/18 03:55 08/14/18 08/14/18 08/14/18 03:55 03:55 04:30 WBC 18.4 H RBC 3.65 L Hgb 11.3 L Hct 32.9 L MCV 90 MCH 30.9 MCHC 34.3 RDW 13.7 Plt Count 233 Carbonic Acid 1.12 HCO3/H2CO3 Ratio 21:1 ABG pH 7.44 ABG pCO2 37.1 ABG pO2 70.6 L ABG HCO3 24.5 H ABG O2 Saturation 94.8 ABG Base Excess 0.5 FiO2 25% Sodium 136.8 L Potassium 3.9 Chloride 107 Carbon Dioxide 22 Anion Gap 8 BUN 25 H Creatinine 0.91 Est GFR ( Amer) > 60 Est GFR (Non-Af Amer) > 60 Glucose 116 H Calcium 8.3 L Magnesium 2.1 08/12/18 04:06 NT-Pro-B Natriuret Pep 711 Impressions: Chest/Abdomen CTA 08/11/18 15:17 IMPRESSION: Bilateral lower lobe airspace disease -atelectasis, left greater than right. No emboli visualized in the main pulmonary arteries or the segmental branches. Chest X-Ray 08/14/18 06:00 IMPRESSION: No significant change. Assessment & Plan - Diagnosis (1) Acute respiratory failure with hypoxemia Is this a current diagnosis for this admission?: Yes Plan: Respiratory rate, minute ventilation, FiO2, airway pressures all suggest successful extubation will proceed with extubation to BiPAP (2) Benzodiazepine withdrawal with delirium Is this a current diagnosis for this admission?: Yes (3) Hypertension Qualifiers: Hypertension type: essential hypertension Qualified Code(s): I10 - Essential (primary) hypertension Is this a current diagnosis for this admission?: Yes Plan: Stable at this time - Time Total Critical Time (Minutes): 55
--- NOTE | 2018-08-15 11:46 | PDOC PROGRESS REPORT ---
Subjective Progress Note for:: 08/15/18 Subjective:: 24 hours status post extubation Reason For Visit: ACUTE RESPIRATORY FAILURE, HYPOTENSION Physical Exam Vital Signs: Temp Pulse Resp BP Pulse Ox 99.0 F 85 22 H 186/83 H 92 08/15/18 08:00 08/15/18 08:00 08/15/18 08:00 08/15/18 06:44 08/15/18 08:00 Intake & Output 08/14/18 08/15/18 08/16/18 06:59 06:59 06:59 Intake Total 2572 3732 Output Total 2205 7200 425 Balance 367 -3468 -425 Weight 82 kg 78.9 kg General appearance: PRESENT: no acute distress, disheveled, hard of hearing, well-developed, well-nourished Head exam: PRESENT: atraumatic, normocephalic Eye exam: PRESENT: conjunctiva pale, EOMI. ABSENT: nystagmus, periorbital swelling Mouth exam: PRESENT: dry mucosa, neck supple, tongue midline Neck exam: ABSENT: carotid bruit, JVD, lymphadenopathy, thyromegaly, tracheal deviation, tracheostomy Respiratory exam: PRESENT: crackles, decreased breath sounds, prolonged expiratory phas, rhonchi, symmetrical, unlabored. ABSENT: retraction, stridor Cardiovascular exam: PRESENT: RRR, +S1, +S2 Pulses: PRESENT: normal radial pulses GI/Abdominal exam: PRESENT: soft. ABSENT: tenderness Gentrourinary exam: PRESENT: indwelling catheter Extremities exam: ABSENT: calf tenderness, clubbing, joint swelling Musculoskeletal exam: ABSENT: deformity, dislocation Neurological exam: PRESENT: awake Psychiatric exam: PRESENT: agitated Skin exam: PRESENT: dry, warm Results Laboratory Results: 08/15/18 04:11 08/15/18 04:11 08/14/18 08/15/18 08/15/18 15:55 04:11 04:11 WBC 19.8 H RBC 3.46 L Hgb 10.7 L Hct 31.0 L MCV 90 MCH 30.9 MCHC 34.4 RDW 13.5 Plt Count 194 Carbonic Acid 0.92 L HCO3/H2CO3 Ratio 26:1 ABG pH 7.52 H ABG pCO2 30.6 L ABG pO2 71.8 L ABG HCO3 24.1 H ABG O2 Saturation 96.0 ABG Base Excess 2.0 FiO2 25% Sodium 144.2 Potassium 3.3 L Chloride 112 H Carbon Dioxide 25 Anion Gap 7 BUN 25 H Creatinine 0.81 Est GFR ( Amer) > 60 Est GFR (Non-Af Amer) > 60 Glucose 95 Calcium 9.1 Magnesium 2.4 H 08/15/18 04:30 WBC RBC Hgb Hct MCV MCH MCHC RDW Plt Count Carbonic Acid 1.11 HCO3/H2CO3 Ratio 24:1 ABG pH 7.49 H ABG pCO2 37.0 ABG pO2 78.1 L ABG HCO3 27.6 H ABG O2 Saturation 96.4 ABG Base Excess 4.1 FiO2 3L Sodium Potassium Chloride Carbon Dioxide Anion Gap BUN Creatinine Est GFR ( Amer) Est GFR (Non-Af Amer) Glucose Calcium Magnesium 08/12/18 04:06 NT-Pro-B Natriuret Pep 711 Impressions: Chest/Abdomen CTA 08/11/18 15:17 IMPRESSION: Bilateral lower lobe airspace disease -atelectasis, left greater than right. No emboli visualized in the main pulmonary arteries or the segmental branches. Chest X-Ray 08/15/18 06:00 IMPRESSION: Worsening includes moderate mixed interstitial and airspace opacity. Assessment & Plan - Diagnosis (1) Acute respiratory failure with hypoxemia Is this a current diagnosis for this admission?: Yes Plan: Respiratory rate, minute ventilation, FiO2, airway pressures all suggest successful extubation will proceed with extubation to BiPAP (2) Benzodiazepine withdrawal with delirium Is this a current diagnosis for this admission?: Yes Plan: Confused (3) Hypertension Qualifiers: Hypertension type: essential hypertension Qualified Code(s): I10 - Essential (primary) hypertension Is this a current diagnosis for this admission?: Yes Plan: Stable at this time - Time Total Critical Time (Minutes): 45
[2018-08-15] MEDS: CEFTRIAXONE SODIUM 1,000 MG in DEXTROSE 5%-WATER 50 ML IV SCH (13:51)
--- NOTE | 2018-08-15 17:54 | PDOC PROGRESS REPORT ---
Subjective Progress Note for:: 08/15/18 Subjective:: No adverse events overnight. No new complaints. Her chief concern was making sure she got her Percocet 5 times a day like she takes at home. She was extubated successfully yesterday. Her oxygen saturations on the upper 90s on room air today. Her blood pressure was elevated this morning but came down as the day went on. Physical therapy was going to work with her this morning. Reason For Visit: ACUTE RESPIRATORY FAILURE, HYPOTENSION Physical Exam Vital Signs: Temp Pulse Resp BP Pulse Ox 98.6 F 68 18 149/81 H 95 08/15/18 16:00 08/15/18 16:00 08/15/18 16:00 08/15/18 16:00 08/15/18 16:00 Intake & Output 08/14/18 08/15/18 08/16/18 06:59 06:59 06:59 Intake Total 2572 3732 Output Total 2205 7200 3300 Balance 367 -3468 -3300 Weight 82 kg 78.9 kg General appearance: PRESENT: no acute distress, obese Head exam: PRESENT: atraumatic Eye exam: ABSENT: conjunctival injection, scleral icterus Ear exam: PRESENT: normal external ear exam Mouth exam: PRESENT: moist Neck exam: ABSENT: lymphadenopathy, tracheal deviation Respiratory exam: PRESENT: clear to auscultation jennifer, unlabored. ABSENT: rales , rhonchi, wheezes Cardiovascular exam: PRESENT: RRR. ABSENT: systolic murmur Pulses: PRESENT: normal radial pulses, +2 pedal pulses bilateral GI/Abdominal exam: PRESENT: normal bowel sounds, soft. ABSENT: distended, firm , tenderness Rectal exam: PRESENT: deferred Gentrourinary exam: PRESENT: indwelling catheter - clear yellow urine Musculoskeletal exam: PRESENT: normal inspection Results Laboratory Results: 08/15/18 04:11 08/15/18 04:11 08/15/18 08/15/18 08/15/18 04:11 04:11 04:30 WBC 19.8 H RBC 3.46 L Hgb 10.7 L Hct 31.0 L MCV 90 MCH 30.9 MCHC 34.4 RDW 13.5 Plt Count 194 Carbonic Acid 1.11 HCO3/H2CO3 Ratio 24:1 ABG pH 7.49 H ABG pCO2 37.0 ABG pO2 78.1 L ABG HCO3 27.6 H ABG O2 Saturation 96.4 ABG Base Excess 4.1 FiO2 3L Sodium 144.2 Potassium 3.3 L Chloride 112 H Carbon Dioxide 25 Anion Gap 7 BUN 25 H Creatinine 0.81 Est GFR ( Amer) > 60 Est GFR (Non-Af Amer) > 60 Glucose 95 Calcium 9.1 Magnesium 2.4 H 08/11/18 20:40 Tracheal Aspirate Gram Stain - Final 08/11/18 20:40 Tracheal Aspirate Sputum Culture - Final Streptococcus Pneumoniae Staphylococcus Aureus Haemophilus Influenzae Normal Zunilda Absent 08/12/18 04:06 NT-Pro-B Natriuret Pep 711 Impressions: Chest/Abdomen CTA 08/11/18 15:17 IMPRESSION: Bilateral lower lobe airspace disease -atelectasis, left greater than right. No emboli visualized in the main pulmonary arteries or the segmental branches. Chest X-Ray 08/15/18 06:00 IMPRESSION: Worsening includes moderate mixed interstitial and airspace opacity. Assessment & Plan - Diagnosis (1) Acute respiratory failure with hypoxemia Is this a current diagnosis for this admission?: Yes Plan: Resolved. Successful extubation. Pulmonary following. (2) Hypertension Qualifiers: Hypertension type: essential hypertension Qualified Code(s): I10 - Essential (primary) hypertension Is this a current diagnosis for this admission?: Yes Plan: Improved after her medication (3) Benzodiazepine withdrawal with delirium Is this a current diagnosis for this admission?: Yes Plan: Seemingly resolved (4) Opiate dependence, continuous Is this a current diagnosis for this admission?: Yes Plan: We will monitor her for oversedation - Time Time Spent with patient: 35 or more minutes
[2018-08-15] MEDS: FAMOTIDINE INJ/PF 20 MG/2 ML SDV IV SCH (22:04)
[2018-08-16] MEDS: FENTANYL CITRATE INJ/PF 100 MCG/2 ML AMPUL IV PRN (02:01)
[2018-08-16] MEDS: OXYCODONE HCL IR 5 MG TABLET PO SCH ×4 (03:26→20:34)
[2018-08-16 04:29] LABS: HEMATOCRIT 37.1 % (36.0-47.0); MEAN CORPUSCULAR HEMOGLOBIN 30.8 pg (27.0-33.4); MEAN CORPUSCULAR HGB CONC 34.4 g/dL (32.0-36.0); MEAN CORPUSCULAR VOLUME 90 fl (80-97); PLATELET COUNT 243 10^3/uL (150-450); RED BLOOD COUNT 4.14 10^6/uL (3.72-5.28); RED CELL DISTRIBUTION WIDTH 13.7 % (11.5-14.0); WHITE BLOOD COUNT 15.6 10^3/uL (4.0-10.5)
[2018-08-16 04:33] LABS: HEMOGLOBIN 12.8 g/dL (12.0-15.5)
[2018-08-16 04:41] LABS: ALANINE AMINOTRANSFERASE 29 U/L (9-52); ALBUMIN 3.6 g/dL (3.5-5.0); ALKALINE PHOSPHATASE 81 U/L (38-126); ANION GAP 10 (5-19); ASPARTATE AMINO TRANSFERASE 23 U/L (14-36); BILIRUBIN,DIRECT 0.4 mg/dL (0.0-0.4); BILIRUBIN,TOTAL 0.9 mg/dL (0.2-1.3); BLOOD UREA NITROGEN 27 mg/dL (7-20); CALCIUM 9.3 mg/dL (8.4-10.2); CARBON DIOXIDE 27 mmol/L (22-30); CHLORIDE 104 mmol/L (98-107); GLUCOSE 139 mg/dL (75-110); POTASSIUM 3.7 mmol/L (3.6-5.0); SODIUM 141.4 mmol/L (137-145)
[2018-08-16 05:00] LABS: ABSOLUTE MONOCYTES # (MANUAL) 0.9 10^3/uL (0.1-1.4); EOSINOPHILS % (MANUAL) 0 % (0-6); LYMPHOCYTES % (MANUAL) 8 % (13-45); MONOCYTES % (MANUAL) 6 % (3-13); SEGMENTED NEUTROPHILS % (MAN) 86 % (42-78); TOTAL CELLS COUNTED 100
[2018-08-16 05:01] LABS: ABSOLUTE LYMPHOCYTES# (MANUAL) 1.2 10^3/uL (0.5-4.7); ABSOLUTE NEUTROPHILS# (MANUAL) 13.4 10^3/uL (1.7-8.2); BASOPHILS % (MANUAL) 0 % (0-2)
[2018-08-16 05:03] LABS: TOXIC GRANULATION SLIGHT
[2018-08-16 05:04] LABS: HELMET CELLS SLIGHT; OVALOCYTES SLIGHT; PLATELET COMMENT ADEQUATE; POIKILOCYTOSIS SLIGHT
[2018-08-16] MEDS: GABAPENTIN 400 MG CAPSULE PO SCH ×3 (06:13→22:01)
[2018-08-16 06:16] LABS: ARTERIAL BLOOD BASE EXCESS 3.7 mmol/L; ARTERIAL BLOOD H2CO3 1.13 mmol/L (1.05-1.35); ARTERIAL BLOOD HCO3 27.2 mmol/L (20-24); ARTERIAL BLOOD O2 SATURATION 94.7 % (94-98); ARTERIAL BLOOD PCO2 37.6 mmHg (35-45); ARTERIAL BLOOD PH 7.48 (7.35-7.45); ARTERIAL BLOOD PO2 67.5 mmHg (80-100); ARTERIAL BLOOD TOTAL CO2 28.4 mmol/L (21-25)
[2018-08-16 06:18] LABS: ARTERIAL BLOOD FIO2 ROOM AIR
--- NOTE | 2018-08-16 08:15 | RADIOLOGY REPORT (SQ) ---
EXAM DESCRIPTION: CHEST SINGLE VIEW COMPLETED DATE/TIME: 08/16/2018 6:53 am REASON FOR STUDY: resp failure COMPARISON: AP chest 08/15/2018, 08/14/2018 and 08/13/2018 EXAM PARAMETERS: NUMBER OF VIEWS: One view. TECHNIQUE: Single frontal radiographic view of the chest acquired. RADIATION DOSE: NA LIMITATIONS: None. FINDINGS: LUNGS AND PLEURA: No opacities, masses or pneumothorax. No pleural effusion. MEDIASTINUM AND HILAR STRUCTURES: No masses. Contour normal. HEART AND VASCULAR STRUCTURES: Heart normal in size. Normal vasculature. BONES: No acute findings. HARDWARE: Lower cervical fusion hardware OTHER: No other significant finding. IMPRESSION: Resolved pulmonary edema pattern TECHNICAL DOCUMENTATION: JOB ID: [id number] [employer]- All Rights Reserved Reading location - IP/workstation name: [facility] [email or web address]
[2018-08-16] MEDS: HYDROCHLOROTHIAZIDE 12.5 MG TABLET PO SCH (09:28)
[2018-08-16] MEDS: LISINOPRIL 10 MG TABLET PO SCH (09:28)
[2018-08-16] MEDS: METHYLPREDNISOLONE INJ 40 MG/1 ML SDV IV SCH (09:29)
[2018-08-16] MEDS: ATENOLOL 50 MG TABLET PO SCH (09:30)
[2018-08-16] MEDS: AZITHROMYCIN 500 MG in DEXTROSE 5%-WATER 250 ML IV SCH (09:32)
[2018-08-16] MEDS: ENOXAPARIN SODIUM INJ 40 MG/0.4 ML DISP.SYRIN SUBCUT SCH (09:33)
[2018-08-16] MEDS: NAPROXEN 250 MG TABLET PO SCH ×3 (09:33→22:01)
[2018-08-16] MEDS: HYDRALAZINE HCL INJ/PF 20 MG/1 ML SDV IV PRN (12:02)
[2018-08-16] MEDS: CEFTRIAXONE SODIUM 1,000 MG in DEXTROSE 5%-WATER 50 ML IV SCH (12:53)
--- NOTE | 2018-08-16 18:36 | PDOC PROGRESS REPORT ---
Subjective Progress Note for:: 08/16/18 Subjective:: No adverse events overnight. No new complaints. Blood pressure improved yesterday after her medications. She is much more alert and interactive today. Reason For Visit: ACUTE RESPIRATORY FAILURE, HYPOTENSION Physical Exam Vital Signs: Temp Pulse Resp BP Pulse Ox 98.6 F 73 20 143/70 H 93 08/16/18 14:00 08/16/18 12:00 08/16/18 12:00 08/16/18 14:27 08/16/18 15:00 Intake & Output 08/15/18 08/16/18 08/17/18 06:59 06:59 06:59 Intake Total 3732 300 900 Output Total 7200 4760 960 Balance -3468 -4460 -60 Weight 78.9 kg 75.6 kg General appearance: PRESENT: no acute distress, obese Head exam: PRESENT: atraumatic Eye exam: ABSENT: conjunctival injection, scleral icterus Ear exam: PRESENT: normal external ear exam Mouth exam: PRESENT: moist Neck exam: ABSENT: lymphadenopathy, tracheal deviation Respiratory exam: PRESENT: clear to auscultation jennifer, unlabored. ABSENT: rales , rhonchi, wheezes Cardiovascular exam: PRESENT: RRR. ABSENT: systolic murmur Pulses: PRESENT: normal radial pulses, +2 pedal pulses bilateral GI/Abdominal exam: PRESENT: normal bowel sounds, soft. ABSENT: distended, firm , tenderness Rectal exam: PRESENT: deferred Gentrourinary exam: PRESENT: indwelling catheter - clear yellow urine Musculoskeletal exam: PRESENT: normal inspection Results Laboratory Results: 08/16/18 04:08 08/16/18 04:08 08/16/18 08/16/18 08/16/18 04:08 04:08 06:03 WBC 15.6 H RBC 4.14 Hgb 12.8 D Hct 37.1 MCV 90 MCH 30.8 MCHC 34.4 RDW 13.7 Plt Count 243 Seg Neutrophils % Not Reportable Lymphocytes % Not Reportable Monocytes % Not Reportable Eosinophils % Not Reportable Basophils % Not Reportable Absolute Neutrophils Not Reportable Absolute Lymphocytes Not Reportable Absolute Monocytes Not Reportable Absolute Eosinophils Not Reportable Absolute Basophils Not Reportable Carbonic Acid 1.13 HCO3/H2CO3 Ratio 24:1 ABG pH 7.48 H ABG pCO2 37.6 ABG pO2 67.5 L ABG HCO3 27.2 H ABG O2 Saturation 94.7 ABG Base Excess 3.7 FiO2 ROOM AIR Sodium 141.4 Potassium 3.7 Chloride 104 Carbon Dioxide 27 Anion Gap 10 BUN 27 H Creatinine 0.94 Est GFR ( Amer) > 60 Est GFR (Non-Af Amer) > 60 Glucose 139 H Calcium 9.3 Magnesium 2.2 Total Bilirubin 0.9 AST 23 ALT 29 Alkaline Phosphatase 81 Total Protein 7.0 Albumin 3.6 08/11/18 20:40 Tracheal Aspirate Gram Stain - Final 08/11/18 20:40 Tracheal Aspirate Sputum Culture - Final Streptococcus Pneumoniae Staphylococcus Aureus Haemophilus Influenzae Normal Zunilda Absent 08/13/18 10:37 Tracheal Aspirate Gram Stain - Final 08/13/18 10:37 Tracheal Aspirate Sputum Culture - Final Staphylococcus Aureus C.albicans/C.dubliniensis Greatly Reduced Normal Zunilda 08/12/18 04:06 NT-Pro-B Natriuret Pep 711 Impressions: Chest/Abdomen CTA 08/11/18 15:17 IMPRESSION: Bilateral lower lobe airspace disease -atelectasis, left greater than right. No emboli visualized in the main pulmonary arteries or the segmental branches. Chest X-Ray 08/16/18 06:00 IMPRESSION: Resolved pulmonary edema pattern Assessment & Plan - Diagnosis (1) Acute respiratory failure with hypoxemia Is this a current diagnosis for this admission?: Yes Plan: Resolved. Successful extubation. Pulmonary following. 1 to remove her Grajeda and get her out of the ICU today. We will continue with her physical therapy. Anticipate she will be discharged in the next 1-2 days. (2) Hypertension Qualifiers: Hypertension type: essential hypertension Qualified Code(s): I10 - Essential (primary) hypertension Is this a current diagnosis for this admission?: Yes Plan: Improved after her medication (3) Benzodiazepine withdrawal with delirium Is this a current diagnosis for this admission?: Yes Plan: Seemingly resolved (4) Opiate dependence, continuous Is this a current diagnosis for this admission?: Yes Plan: We will monitor her for oversedation - Time Time Spent with patient: 25-34 minutes
[2018-08-16] MEDS: FAMOTIDINE INJ/PF 20 MG/2 ML SDV IV SCH (22:01)
[2018-08-17] MEDS: HYDRALAZINE HCL INJ/PF 20 MG/1 ML SDV IV PRN (00:45)
[2018-08-17] MEDS: OXYCODONE HCL IR 5 MG TABLET PO SCH ×3 (03:05→14:29)
[2018-08-17] MEDS: GABAPENTIN 400 MG CAPSULE PO SCH ×2 (05:25→13:41)
[2018-08-17 05:53] LABS: MEAN CORPUSCULAR HEMOGLOBIN 30.4 pg (27.0-33.4); MEAN CORPUSCULAR HGB CONC 34.2 g/dL (32.0-36.0); MEAN CORPUSCULAR VOLUME 89 fl (80-97); PLATELET COUNT 231 10^3/uL (150-450); RED BLOOD COUNT 4.27 10^6/uL (3.72-5.28); RED CELL DISTRIBUTION WIDTH 13.7 % (11.5-14.0); WHITE BLOOD COUNT 16.6 10^3/uL (4.0-10.5)
[2018-08-17 06:12] LABS: ABSOLUTE MONOCYTES # (MANUAL) 1.8 10^3/uL (0.1-1.4); ABSOLUTE NEUTROPHILS# (MANUAL) 10.8 10^3/uL (1.7-8.2); BASOPHILS % (MANUAL) 0 % (0-2); EOSINOPHILS % (MANUAL) 0 % (0-6); LYMPHOCYTES % (MANUAL) 24 % (13-45); MONOCYTES % (MANUAL) 11 % (3-13); SEGMENTED NEUTROPHILS % (MAN) 65 % (42-78); TOTAL CELLS COUNTED 100
[2018-08-17 06:13] LABS: HELMET CELLS SLIGHT; PLATELET COMMENT ADEQUATE; POIKILOCYTOSIS SLIGHT; POLYCHROMASIA SLIGHT
[2018-08-17 06:29] LABS: GLUCOSE 75 mg/dL (75-110)
[2018-08-17 06:31] LABS: ALANINE AMINOTRANSFERASE 32 U/L (9-52); ALBUMIN 3.4 g/dL (3.5-5.0); ALKALINE PHOSPHATASE 75 U/L (38-126); ANION GAP 6 (5-19); ASPARTATE AMINO TRANSFERASE 20 U/L (14-36); BILIRUBIN,DIRECT 0.3 mg/dL (0.0-0.4); BILIRUBIN,TOTAL 0.7 mg/dL (0.2-1.3); BLOOD UREA NITROGEN 38 mg/dL (7-20); CALCIUM 9.1 mg/dL (8.4-10.2); CARBON DIOXIDE 31 mmol/L (22-30); CHLORIDE 102 mmol/L (98-107); POTASSIUM 3.7 mmol/L (3.6-5.0); SODIUM 139.1 mmol/L (137-145); TOTAL PROTEIN 6.5 g/dL (6.3-8.2)
[2018-08-17 06:45] LABS: ARTERIAL BLOOD BASE EXCESS 6.5 mmol/L; ARTERIAL BLOOD H2CO3 1.29 mmol/L (1.05-1.35); ARTERIAL BLOOD HCO3 30.8 mmol/L (20-24); ARTERIAL BLOOD O2 SATURATION 94.9 % (94-98); ARTERIAL BLOOD PH 7.47 (7.35-7.45); ARTERIAL BLOOD PO2 69.4 mmHg (80-100); ARTERIAL BLOOD TOTAL CO2 32.1 mmol/L (21-25)
[2018-08-17 06:46] LABS: ARTERIAL BLOOD FIO2 ROOM AIR
[2018-08-17] MEDS: ENOXAPARIN SODIUM INJ 40 MG/0.4 ML DISP.SYRIN SUBCUT SCH (09:12)
[2018-08-17] MEDS: HYDROCHLOROTHIAZIDE 12.5 MG TABLET PO SCH (09:13)
[2018-08-17] MEDS: LISINOPRIL 10 MG TABLET PO SCH (09:13)
[2018-08-17] MEDS: NAPROXEN 250 MG TABLET PO SCH (09:21)
--- NOTE | 2018-08-17 11:01 | PDOC PROGRESS REPORT ---
Subjective Progress Note for:: 08/16/18 Subjective:: Stable Reason For Visit: ACUTE RESPIRATORY FAILURE, HYPOTENSION Physical Exam Vital Signs: Temp Pulse Resp BP Pulse Ox 98.8 F 65 18 158/93 H 94 08/16/18 08:00 08/16/18 08:00 08/16/18 08:00 08/16/18 08:00 08/16/18 08:00 Intake & Output 08/15/18 08/16/18 08/17/18 06:59 06:59 06:59 Intake Total 3732 300 Output Total 7200 4760 60 Balance -3468 -1109 240 Weight 78.9 kg 75.6 kg General appearance: PRESENT: no acute distress, cooperative, disheveled, well- developed, well-nourished Head exam: PRESENT: atraumatic, normocephalic Eye exam: PRESENT: conjunctiva pale, EOMI. ABSENT: nystagmus, periorbital swelling, scleral icterus Mouth exam: PRESENT: dry mucosa, neck supple, tongue midline Neck exam: ABSENT: carotid bruit, JVD, lymphadenopathy, thyromegaly, tracheal deviation, tracheostomy Respiratory exam: PRESENT: decreased breath sounds, prolonged expiratory phas, rhonchi, unlabored. ABSENT: retraction, stridor Cardiovascular exam: PRESENT: RRR, +S1, +S2 Pulses: PRESENT: normal radial pulses GI/Abdominal exam: PRESENT: soft. ABSENT: tenderness Gentrourinary exam: PRESENT: indwelling catheter Extremities exam: ABSENT: calf tenderness, clubbing, joint swelling Neurological exam: PRESENT: alert, awake Psychiatric exam: PRESENT: normal mood Skin exam: PRESENT: dry, warm Results Laboratory Results: 08/16/18 04:08 08/16/18 04:08 08/16/18 08/16/18 08/16/18 04:08 04:08 06:03 WBC 15.6 H RBC 4.14 Hgb 12.8 D Hct 37.1 MCV 90 MCH 30.8 MCHC 34.4 RDW 13.7 Plt Count 243 Seg Neutrophils % Not Reportable Lymphocytes % Not Reportable Monocytes % Not Reportable Eosinophils % Not Reportable Basophils % Not Reportable Absolute Neutrophils Not Reportable Absolute Lymphocytes Not Reportable Absolute Monocytes Not Reportable Absolute Eosinophils Not Reportable Absolute Basophils Not Reportable Carbonic Acid 1.13 HCO3/H2CO3 Ratio 24:1 ABG pH 7.48 H ABG pCO2 37.6 ABG pO2 67.5 L ABG HCO3 27.2 H ABG O2 Saturation 94.7 ABG Base Excess 3.7 FiO2 ROOM AIR Sodium 141.4 Potassium 3.7 Chloride 104 Carbon Dioxide 27 Anion Gap 10 BUN 27 H Creatinine 0.94 Est GFR ( Amer) > 60 Est GFR (Non-Af Amer) > 60 Glucose 139 H Calcium 9.3 Magnesium 2.2 Total Bilirubin 0.9 AST 23 ALT 29 Alkaline Phosphatase 81 Total Protein 7.0 Albumin 3.6 08/11/18 20:40 Tracheal Aspirate Gram Stain - Final 08/11/18 20:40 Tracheal Aspirate Sputum Culture - Final Streptococcus Pneumoniae Staphylococcus Aureus Haemophilus Influenzae Normal Zunilda Absent 08/12/18 04:06 NT-Pro-B Natriuret Pep 711 Impressions: Chest/Abdomen CTA 08/11/18 15:17 IMPRESSION: Bilateral lower lobe airspace disease -atelectasis, left greater than right. No emboli visualized in the main pulmonary arteries or the segmental branches. Chest X-Ray 08/16/18 06:00 IMPRESSION: Resolved pulmonary edema pattern Assessment & Plan - Diagnosis (1) Acute respiratory failure with hypoxemia Is this a current diagnosis for this admission?: Yes Plan: Resolved patient remained stable at this time (2) Benzodiazepine withdrawal with delirium Is this a current diagnosis for this admission?: Yes Plan: Confused (3) Hypertension Qualifiers: Hypertension type: essential hypertension Qualified Code(s): I10 - Essential (primary) hypertension Is this a current diagnosis for this admission?: Yes Plan: Stable at this time
--- NOTE | 2018-08-17 11:03 | PDOC PROGRESS REPORT ---
Subjective Progress Note for:: 08/17/18 Subjective:: Stable Reason For Visit: ACUTE RESPIRATORY FAILURE, HYPOTENSION Physical Exam Vital Signs: Temp Pulse Resp BP Pulse Ox 98.3 F 67 14 129/65 H 94 08/17/18 03:24 08/17/18 08:25 08/17/18 08:25 08/17/18 03:24 08/17/18 08:25 Intake & Output 08/16/18 08/17/18 08/18/18 06:59 06:59 06:59 Intake Total 300 1200 Output Total 4760 960 Balance -4460 240 Weight 75.6 kg 75.6 kg General appearance: PRESENT: no acute distress, cooperative, disheveled, well- developed, well-nourished Head exam: PRESENT: atraumatic, normocephalic Eye exam: PRESENT: conjunctiva pale, EOMI. ABSENT: nystagmus, scleral icterus Mouth exam: PRESENT: dry mucosa, neck supple, tongue midline Neck exam: ABSENT: carotid bruit, JVD, lymphadenopathy, thyromegaly, tracheal deviation, tracheostomy Respiratory exam: PRESENT: decreased breath sounds, prolonged expiratory phas, rhonchi, unlabored. ABSENT: retraction, stridor Cardiovascular exam: PRESENT: RRR, +S1, +S2 Pulses: PRESENT: normal radial pulses GI/Abdominal exam: PRESENT: soft Extremities exam: ABSENT: calf tenderness, clubbing, joint swelling Musculoskeletal exam: ABSENT: deformity Neurological exam: PRESENT: alert, awake Psychiatric exam: PRESENT: normal mood Skin exam: PRESENT: dry, warm Results Laboratory Results: 08/17/18 05:32 08/17/18 05:32 08/17/18 08/17/18 08/17/18 05:32 05:32 06:25 WBC 16.6 H RBC 4.27 Hgb 13.0 Hct 38.0 MCV 89 MCH 30.4 MCHC 34.2 RDW 13.7 Plt Count 231 Seg Neutrophils % Not Reportable Lymphocytes % Not Reportable Monocytes % Not Reportable Eosinophils % Not Reportable Basophils % Not Reportable Absolute Neutrophils Not Reportable Absolute Lymphocytes Not Reportable Absolute Monocytes Not Reportable Absolute Eosinophils Not Reportable Absolute Basophils Not Reportable Carbonic Acid 1.29 HCO3/H2CO3 Ratio 23:1 ABG pH 7.47 H ABG pCO2 43.0 ABG pO2 69.4 L ABG HCO3 30.8 H ABG O2 Saturation 94.9 ABG Base Excess 6.5 FiO2 ROOM AIR Sodium 139.1 Potassium 3.7 Chloride 102 Carbon Dioxide 31 H Anion Gap 6 BUN 38 H Creatinine 1.04 Est GFR ( Amer) > 60 Est GFR (Non-Af Amer) 54 L Glucose 75 Calcium 9.1 Magnesium 2.4 H Total Bilirubin 0.7 AST 20 ALT 32 Alkaline Phosphatase 75 Total Protein 6.5 Albumin 3.4 L 08/11/18 20:40 Tracheal Aspirate Gram Stain - Final 08/11/18 20:40 Tracheal Aspirate Sputum Culture - Final Streptococcus Pneumoniae Staphylococcus Aureus Haemophilus Influenzae Normal Zunilda Absent 08/13/18 10:37 Tracheal Aspirate Gram Stain - Final 08/13/18 10:37 Tracheal Aspirate Sputum Culture - Final Staphylococcus Aureus C.albicans/C.dubliniensis Greatly Reduced Normal Zunilda 08/12/18 04:06 NT-Pro-B Natriuret Pep 711 Impressions: Chest/Abdomen CTA 08/11/18 15:17 IMPRESSION: Bilateral lower lobe airspace disease -atelectasis, left greater than right. No emboli visualized in the main pulmonary arteries or the segmental branches. Chest X-Ray 08/16/18 06:00 IMPRESSION: Resolved pulmonary edema pattern Assessment & Plan - Diagnosis (1) Acute respiratory failure with hypoxemia Is this a current diagnosis for this admission?: Yes Plan: Resolved patient remained stable at this time (2) Benzodiazepine withdrawal with delirium Is this a current diagnosis for this admission?: Yes Plan: Confused (3) Hypertension Qualifiers: Hypertension type: essential hypertension Qualified Code(s): I10 - Essential (primary) hypertension Is this a current diagnosis for this admission?: Yes Plan: Stable at this time
[2018-08-17] MEDS: AZITHROMYCIN 500 MG in DEXTROSE 5%-WATER 250 ML IV SCH (12:27)
[2018-08-17] MEDS: CEFTRIAXONE SODIUM 1,000 MG in DEXTROSE 5%-WATER 50 ML IV SCH (12:28)
[2018-08-17] MEDS: ATENOLOL 50 MG TABLET PO SCH (12:29)
--- NOTE | 2018-08-17 13:05 | RADIOLOGY REPORT (SQ) ---
EXAM DESCRIPTION: CHEST SINGLE VIEW COMPLETED DATE/TIME: 08/17/2018 12:57 pm REASON FOR STUDY: resp failure COMPARISON: 08/11/2018 EXAM PARAMETERS: NUMBER OF VIEWS: One view. TECHNIQUE: Single frontal radiographic view of the chest acquired. RADIATION DOSE: NA LIMITATIONS: None. FINDINGS: LUNGS AND PLEURA: No opacities, masses or pneumothorax. No pleural effusion. MEDIASTINUM AND HILAR STRUCTURES: No masses. Contour normal. HEART AND VASCULAR STRUCTURES: Heart normal in size. Normal vasculature. BONES: No acute findings. HARDWARE: None in the chest. OTHER: No other significant finding. IMPRESSION: NO ACUTE RADIOGRAPHIC FINDING IN THE CHEST. TECHNICAL DOCUMENTATION: JOB ID: [id number] [employer]- All Rights Reserved Reading location - IP/workstation name: [email or web address]
[2018-08-17 16:40] VITALS: BP 128/74
--- NOTE | 2018-08-17 17:02 | PDOC DISCHARGE SUMMARY ---
General - Admit/Disc Date/PCP Admission Date/Primary Care Provider: 08/11/18 16:06 Discharge Date: 08/17/18 - Discharge Diagnosis (1) Acute respiratory failure with hypoxemia Is this a current diagnosis for this admission?: Yes Summary: She initially required mechanical intubation and monitoring in the intensive care unit, but was successfully extubated and did not require any oxygen or supplemental therapy. (2) Hypertension Is this a current diagnosis for this admission?: Yes Summary: Eventually she began to level out once we got her back on her 3 medication she is on at home. (3) Benzodiazepine withdrawal with delirium Is this a current diagnosis for this admission?: Yes Summary: Resolved (4) Opiate dependence, continuous Is this a current diagnosis for this admission?: Yes Summary: Her chief concern after she was extubated was to make sure that we knew that she took Percocet 5 times a day. - Additional Information Resuscitation Status: Full Code Discharge Diet: As Tolerated, Cardiac Discharge Activity: Activity As Tolerated, Slowly Increase Activity, Supervised Activity, Walk Frequently Prescriptions: Levofloxacin [Levaquin 750 mg Tablet] 750 mg PO DAILY #5 tablet Home Medications: Atenolol [Tenormin 100 mg Tablet] 100 mg PO DAILY 08/11/18 Cyclobenzaprine HCl [Flexeril 10 mg Tablet] 10 mg PO TIDP PRN 08/11/18 Gabapentin [Neurontin] 800 mg PO TID 08/11/18 Hydrochlorothiazide [Hydrodiuril 12.5 mg Tablet] 12.5 mg PO DAILY 08/11/18 Lisinopril [Prinivil 40 mg Tablet] 40 mg PO DAILY 08/11/18 Naproxen [Naprosyn 250 mg Tablet] 500 mg PO Q12 08/11/18 Oxycodone HCl/Acetaminophen [Percocet 10-325 mg Tablet] 1 tab PO 5XD 08/11/18 Levofloxacin [Levaquin 750 mg Tablet] 750 mg PO DAILY #5 tablet 08/17/18 History of Present Illness History of Present Illness: EMILY PETTIT is a 57 year old female presented to the emergency room with complaints of difficulty breathing and shortness of breath. It appears she was treated with bronchodilators as well as steroids. She was found to be bronchospastic and was tachypneic. She had initially improved but it appears she is subsequently decompensated leading to a mechanical ventilation and intubation after a trial of BiPAP which failed. She was also found to be hypotensive and was started on Levophed by the time I saw her in the ED pressure had improved and will try to taper off the Levophed. She was treated with magnesium IV also. Please note this history is obtained solely from the chart as patient is intubated unable to provide any history. Chest x-ray shows linear atelectasis in the left base and EKG shows sinus rhythm with no acute ST changes Hospital Course Hospital Course: She was treated with steroids and bronchodilators and ultimately required mechanical ventilation after she was intubated in the ER after she presented with worsening shortness of breath. After a few days on the ventilator, she was able to be successfully extubated. Her blood pressure began to give him some problems, but once we were able to get her back on her home medications her blood pressure did improve. She was seen and evaluated by physical therapy who recommended therapy after she left the hospital, and we had a chance to get her into acute rehab or to do home health physical therapy for her, but she refused to do either of those, saying she just needed to get home. She said she had several walkers at home and did not need us to get her one. She was discharged today in good condition. Physical Exam Vital Signs: Temp Pulse Resp BP Pulse Ox 98.0 F 61 15 128/74 H 96 08/17/18 16:00 08/17/18 16:00 08/17/18 16:00 08/17/18 16:00 08/17/18 16:00 Intake & Output 08/16/18 08/17/18 08/18/18 06:59 06:59 06:59 Intake Total 300 1200 355 Output Total 4760 960 1 Balance -4460 240 354 Weight 75.6 kg 75.6 kg General appearance: PRESENT: no acute distress, obese Head exam: PRESENT: atraumatic Eye exam: ABSENT: conjunctival injection, scleral icterus Ear exam: PRESENT: normal external ear exam Neck exam: ABSENT: lymphadenopathy, tracheal deviation Respiratory exam: PRESENT: clear to auscultation jennifer, unlabored. ABSENT: rales , rhonchi, wheezes Cardiovascular exam: PRESENT: RRR. ABSENT: systolic murmur Pulses: PRESENT: normal radial pulses, +2 pedal pulses bilateral GI/Abdominal exam: PRESENT: normal bowel sounds, soft. ABSENT: distended, firm , tenderness Musculoskeletal exam: PRESENT: normal inspection Results Laboratory Results: 08/17/18 05:32 08/17/18 05:32 08/17/18 08/17/18 08/17/18 05:32 05:32 06:25 WBC 16.6 H RBC 4.27 Hgb 13.0 Hct 38.0 MCV 89 MCH 30.4 MCHC 34.2 RDW 13.7 Plt Count 231 Seg Neutrophils % Not Reportable Lymphocytes % Not Reportable Monocytes % Not Reportable Eosinophils % Not Reportable Basophils % Not Reportable Absolute Neutrophils Not Reportable Absolute Lymphocytes Not Reportable Absolute Monocytes Not Reportable Absolute Eosinophils Not Reportable Absolute Basophils Not Reportable Carbonic Acid 1.29 HCO3/H2CO3 Ratio 23:1 ABG pH 7.47 H ABG pCO2 43.0 ABG pO2 69.4 L ABG HCO3 30.8 H ABG O2 Saturation 94.9 ABG Base Excess 6.5 FiO2 ROOM AIR Sodium 139.1 Potassium 3.7 Chloride 102 Carbon Dioxide 31 H Anion Gap 6 BUN 38 H Creatinine 1.04 Est GFR ( Amer) > 60 Est GFR (Non-Af Amer) 54 L Glucose 75 Calcium 9.1 Magnesium 2.4 H Total Bilirubin 0.7 AST 20 ALT 32 Alkaline Phosphatase 75 Total Protein 6.5 Albumin 3.4 L 08/11/18 20:40 Tracheal Aspirate Gram Stain - Final 08/11/18 20:40 Tracheal Aspirate Sputum Culture - Final Streptococcus Pneumoniae Staphylococcus Aureus Haemophilus Influenzae Normal Zunilda Absent 08/13/18 10:37 Tracheal Aspirate Gram Stain - Final 08/13/18 10:37 Tracheal Aspirate Sputum Culture - Final Staphylococcus Aureus C.albicans/C.dubliniensis Greatly Reduced Normal Zunilda 08/12/18 04:06 NT-Pro-B Natriuret Pep 711 Impressions: Chest/Abdomen CTA 08/11/18 15:17 IMPRESSION: Bilateral lower lobe airspace disease -atelectasis, left greater than right. No emboli visualized in the main pulmonary arteries or the segmental branches. Chest X-Ray 08/17/18 06:00 IMPRESSION: NO ACUTE RADIOGRAPHIC FINDING IN THE CHEST. Qualifiers - * PATIENT BEING DISCHARGED WITH ANY OF THE FOLLOWING DIAGNOSIS: No
== END 2018-08-17 17:47 | disposition home health service (06) | DRG 208 ==
LOC: ER 10:14 → EH 16:06 → ICU 19:00 → 5 08-16 21:14
PROVIDERS: ADMIT Internal Medicine; ATTEND Internal Medicine
PROC: 5A1945Z Respiratory Ventilation, 24-96 Consecutive Hours (ICD-10-PCS; principal; 2018-08-11)
PROC: 5A09357 Assistance with Respiratory Ventilation, Less than 24 Consecutive Hours, Continuous Positive Airway Pressure (ICD-10-PCS; 2018-08-11)
PROC: 0BH17EZ Insertion of Endotracheal Airway into Trachea, Via Natural or Artificial Opening (ICD-10-PCS; 2018-08-11)
PROC: 5A09357 Assistance with Respiratory Ventilation, Less than 24 Consecutive Hours, Continuous Positive Airway Pressure (ICD-10-PCS; 2018-08-14)
PROC: 3E0F73Z Introduction of Anti-inflammatory into Respiratory Tract, Via Natural or Artificial Opening (ICD-10-PCS; 2018-08-14)
PROC: 3E02340 Introduction of Influenza Vaccine into Muscle, Percutaneous Approach (ICD-10-PCS; 2018-08-17)
DX: J96.01 Acute respiratory failure with hypoxia (principal); J44.1 Chronic obstructive pulmonary disease with (acute) exacerbation; F13.231 Sedative, hypnotic or anxiolytic dependence with withdrawal delirium; I95.9 Hypotension, unspecified; I10 Essential (primary) hypertension; B95.3 Streptococcus pneumoniae as the cause of diseases classified elsewhere; B95.61 Methicillin susceptible Staphylococcus aureus infection as the cause of diseases classified elsewhere; B96.3 Hemophilus influenzae [H. influenzae] as the cause of diseases classified elsewhere; E78.00 Pure hypercholesterolemia, unspecified; K21.9 Gastro-esophageal reflux disease without esophagitis; F32.9 Major depressive disorder, single episode, unspecified; G89.4 Chronic pain syndrome; Z78.1 Physical restraint status; Z23 Encounter for immunization; Z79.899 Other long term (current) drug therapy; Z90.710 Acquired absence of both cervix and uterus; Z82.49 Family history of ischemic heart disease and other diseases of the circulatory system
CPT/HCPCS: 36415; 71045; 71046; 71275; 80048; 80053; 80307; 81001; 82803; 83605; 83735; 83880; 84484; 85025; 85027; 85379; 87040; 87070; 87077; 87186; 87205; 90471; 90686; 93005; 93010; 94002; 94003; 94640; 94660; 94799; 96361; 96365; 96367; 96372; 96375; 99291; G0008; J0360; J0456; J0696; J1100; J1650; J2060; J2250; J2704; J2920; J2930; J3010; J3475; J3490; J7030; J7060; J7620; S0028